=== PATIENT | female | born 1960 | race Caucasian/White ===

== ENCOUNTER 2018-11-30 11:37 | Inpatient (IN) ==
[2018-11-30] MEDS ORDERED: ZOSYN 3.375 GM in NS 50 ML IV SCH (13:00)
--- NOTE | 2018-11-30 13:19 | Diag Imaging Result Doc PS360 ---
EXAM: CHEST-2 VIEWS 11/30/2018 HISTORY: pancreatic cancer TECHNIQUE: PA and lateral chest COMMENT: There is ill-defined opacity extending from the vickey into both upper lobes which was not the case on 09/21/2018. There is platelike opacity over the right base and some retrocardiac opacity is present medially which was also not present at the time the previous study. IMPRESSION: Bronchopneumonia with basilar atelectasis. Electronically signed by Galdino Chan 11/30/2018 1:16 PM
[2018-11-30] MEDS ORDERED: ZOFRAN IV PRN (13:25)
--- NOTE | 2018-11-30 13:46 | HEMO/ONC CONSULTATION ---
DATE: 11/30/2018 HISTORY OF PRESENT ILLNESS: Ms. Rich presented to our clinic today where she continues to not feel well at this time. The patient says she has been extremely weak. Patient says she may have had a mild fever of 100.5 last week. The patient was also seen in our clinic last week complaining of extreme amount of weakness and at that time, she was found to have a hemoglobin and hematocrit of 6.3 and 18.3, as well as a platelet count of 14,000. The patient was sent to the hospital as an outpatient and received 2 units of packed red blood cells and 1 unit of platelets. The patient following day after receiving blood had a low-grade fever 100.5 and was started on Levaquin at that time. The patient says her weakness, appetite had not improved and continued to get worse. Today, patient continues to feel bad. While in the office she had a white blood cell count of 37.3 hemoglobin, hematocrit, and platelets all had improved since receiving transfusion. Patient denied any nausea or vomiting, but did have a very poor appetite. Ms. Rich is well known to us in our clinic where she follows up for her metastatic pancreatic adenocarcinoma. The patient originally presented to our clinic with obstructive jaundice. She underwent ERCP and stent placement. Biopsy revealed adenocarcinoma. Initial CA-19-[address] of the chest showed innumerable pulmonary metastasis. PET-CT showed a hypermetabolic pancreatic mass with innumerable pulmonary metastases. The patient was started on Abraxane and Gemzar chemotherapy on 09/07/2018. The patient received her last treatment of Gemzar and Abraxane on 11/16/2018. The patient has also been started on Procrit for chemotherapy- induced anemia. PAST MEDICAL HISTORY: Hypertension, hypothyroidism, metastatic pancreatic adenocarcinoma. PAST SURGICAL HISTORY: Tonsillectomy, tubal ligation with removal, ERCP with stent placement and Port-A-Cath placement. ALLERGIES: No known drug allergies. HOME MEDICATION: Ziac 5/6.25, [place] 5s, Levaquin, Synthroid, lorazepam, Reglan, Zofran, Phenergan, and Zanaflex. SOCIAL HISTORY: Nonsmoker. No alcohol or illicit drug use. FAMILY HISTORY: Heart disease, hypertension. REVIEW OF SYSTEMS: Negative other than as mentioned in history of present illness. PHYSICAL EXAMINATION: Vital Signs: Temperature 98 degrees, heart rate 86, respiratory rate 18, blood pressure 107/78, saturation 98% on room air. General: Patient is awake, lying in bed pale and ill appearing. HEENT: Anicteric. Mucous membranes appear very dry. Neck: Supple. Trachea midline. No JVD. Lymph Nodes: No palpable lymphadenopathy. Cardiovascular: S1, S2. Regular rate and rhythm. Chest: Bilateral breath sounds. Clear to auscultation. Abdomen: Soft, nontender. Bowel sounds present in all 4 quadrants. Neurologic: Alert and oriented x3. No focal deficits noted. Skin: Warm, dry and intact. LABORATORY DATA: White blood cell count drawn in the clinic: White blood cell count 37.3, hemoglobin 11.3, hematocrit 33.9, platelets are 158,000. Sodium 127, potassium 3.3, BUN 10, creatinine 0.28, calcium 7.3, alkaline phosphatase 300, AST 163, ALT is 53. ASSESSMENT/PLAN: 1. Metastatic pancreatic adenocarcinoma: The patient last received Gemzar Abraxane 11/16/2018. Treatment is on hold at this time until patient continues to get better. Once patient is back to baseline, we will consider if we can continue treatment at that time. However, at this time we will continue to monitor closely. 2. Leukocytosis: Blood cultures and antibiotics have been ordered. Infectious Disease has also been consulted. At this time, continue as per Primary Medical Team and Infectious Disease. 3. Anemia: Hemoglobin and hematocrit are 11.3 and 33.9. The patient is status post 2 units of packed red blood cells from last week. Hemoglobin and hematocrit have improved. Need to monitor for any signs of bleeding. 4. Thrombocytopenia: Lastly week's platelets were 14,000. Patient is status post 1 unit of platelets as well. Today they are 158,000. Continue to monitor closely. 5. Elevated Liver enzymes: Possible cholangitis. Continue to monitor levels closely. 6. Weakness: Patient will continue to get out of bed as much as possible. Patient will continue exercises while in the hospital. Continue protein shakes 3 times a day. May need to consult Physical Therapy. Continue to monitor closely. Dictated by HERNANDO Beaulieu for Azael Min MD Patient seen and examined. As above. Patient known to us for metastatic pancreatic adenocarcinoma. She has been on palliative chemotherapy with Gemzar and Abraxane with good response in terms of her tumor marker and restaging scans. She complains of recent fevers increasing tiredness and fatigue and was noted to be very weak with severe leukocytosis. She is admitted for evaluation and further management. Dr. Boswell has been consulted. Broad-spectrum antibiotics have been started. Cultures, urine culture and chest x-ray has been ordered. Azael Min M.D. cc: HERNANDO Beaulieu MD [facility]
[2018-11-30] MEDS: NS 1,000 ML IV SCH (15:31)
--- NOTE | 2018-11-30 15:44 | HISTORY AND PHYSICAL ---
PRIMARY CARE PHYSICIAN: Dr. Yumi Bustamante. ONCOLOGIST: Dr. Azael Min CHIEF COMPLAINT: Fever, leukocytosis, generalized weakness. HISTORY OF PRESENT ILLNESS: Mrs. Rich is a 58-year-old female with a history of metastatic pancreatic adenocarcinoma who is followed by Dr. Azael Min. She presents as a direct admit from his office complaining of extreme weakness with a mild fever of 100.5 during the last week. She was seen in his office last week when symptoms began and reportedly found to have a white count of 6.8, hemoglobin of 6.3, hematocrit of 18.3 as well as platelets of 14,000. She received 2 units of packed cells as well as 1 unit platelets. The following day she noticed a low-grade fever. Although her hemoglobin and hematocrit improved she states her weakness and anorexia have increased prompting her return visit to Dr. Min today. This visit. she was found to have a white blood cell count of 37.3. PAST MEDICAL HISTORY: Hypertension, hypothyroid, metastatic pancreatic adenocarcinoma. PAST SURGICAL HISTORY: Tonsillectomy, tubal ligation, ERCP with stent placement, Port-A-Cath placement. ALLERGIES: No known drug allergies. HOME MEDICATIONS: A list will be obtained by the nursing staff and once verified, will review and restart as appropriate. SOCIAL HISTORY: She denies alcohol, tobacco, or illicit drug use. REVIEW OF SYSTEMS: Discussed with patient with pertinent positives stated in HPI. She denied any syncope, dizziness, chest pain, palpitations, productive cough, any nausea, vomiting, diarrhea, constipation, black or bloody vomitus or stools, any hematuria, dysuria, frequency, urgency. PHYSICAL EXAM: A 58-year-old female who is lying in the bed in no distress. VITAL SIGNS: Blood pressure is 117/72, heart rate of 88, respirations are 18, temperature is 98 degrees, with room air saturations 96 to 98%. EYES: Pupils are equal, round, react to light. EOMs are intact. Sclerae anicteric. HEENT: Head is normocephalic, atraumatic. Mucous membranes moist. NECK: Supple, trachea midline. CARDIOVASCULAR: Regular rate and rhythm. S1, S2 appreciated. She has no murmur. She has no lower extremity edema. PULMONARY: Breath sounds are clear with no increased work of breathing noted. Chest rises and falls symmetric with respiration. GASTROINTESTINAL: Soft, nontender, nondistended with bowel sounds in all 4 quadrants. NEUROLOGIC: She is alert oriented x3. SKIN: Warm and dry. ASSESSMENT AND PLAN: 1. Leukocytosis. Blood cultures, urine culture as well as antibiotics have been ordered by Dr. Min. Dr. Stefano Boswell was consulted per Dr. Min. We continue with his care and further antibiotics will be culture driven. 2. Metastatic pancreatic adenocarcinoma. Aware. The patient will be followed by Dr. Min. 3. Anemia. We will trend complete blood count daily. 4. Thrombocytopenia. We will monitor labs daily. Monitor labs daily. 5. Elevated liver function tests. We will monitor her labs daily. 6. Dr. Carter reviewed the patient's chest x-ray and did not feel that this would warrant a white count of 37,000. Therefore, he ordered a CT of the abdomen and pelvis with IV and p.o. contrast. Complete blood count and complete metabolic panel now and then daily r For deep venous thrombosis prophylaxis will use Lovenox and gastrointestinal prophylaxis will use Prilosec. Further treatments pending hospital course. Dictated by HERNANDO Schaffer for Zeeshan Carter MD cc: HERNANDO Schaffer MD [facility]
[2018-11-30 16:14] LABS: AGAP 11; ALB/GLOB RATIO 0.7; ALBUMIN 2.1 g/dL (3.5-5.0); ALKALINE PHOSPHATASE 366 U/L (32-104); BUN 13 mg/dL (8-22); CALCIUM 7.5 mg/dL (8.8-10.2); CHLORIDE 94 mmol/L (98-107); COSMO 266; CREATININE 0.4 mg/dL (0.5-0.9); ESTIMATED GFR > 60; GLUCOSE 132 mg/dL (70-104); GOT 156 U/L (10-30); GPT 46 U/L (10-36); POTASSIUM 3.7 mmol/L (3.5-5.1); SODIUM 132 mmol/L (136-145); TCO2 27 mmol/L (25-35)
[2018-11-30 16:27] LABS: BASO# 0.15 X1000 (0.0-0.2); BASO% 0.4 % (0.0-0.8); HEMATOCRIT 31.6 % (37.0-47.0); HEMOGLOBIN 10.8 g/dL (12.0-16.0); IMM GRAN# 1.95 X1000 (0.0-0.04); IMM GRAN% 5.7 % (0.0-0.5); LYMPH# 1.91 X1000 (1.2-3.4); LYMPH% 5.6 % (20.5-51.1); MCH 33.2 PG (27-31); MCHC 34.2 g/dL (33-37); MCV 97.2 FL (81-99); MONO# 2.59 X1000 (0.11-0.59); MONO% 7.6 % (1.7-9.3); MPV 11.4 FL (7.4-10.4); NEUT# 27.66 X1000 (1.4-6.5); NEUT% 80.7 % (42.2-75.2); PLT 148 X1000 (130-400); RBC 3.25 XMIL (4.2-5.4); RDW 28.4 % (11.5-14.5); WBC 34.26 X1000 (4.8-10.8)
[2018-11-30 16:51] LABS: ANISOCYTOSIS 2+; LYMPHS 1 % (21-51); MONO 10 % (1-9); SEGS 89 % (42-75)
[2018-11-30] MEDS ORDERED: VANCOMYCIN IV PER PHARMACY MISC SCH (17:00)
--- NOTE | 2018-11-30 17:17 | INFECTIOUS DISEASE CONSULT REP ---
DATE: 11/30/2018 CONCLUSION: The patient has a bibasilar pneumonia which I think is responsible for her leukocytosis. She has received steroids in the past but the last time she had any steroids at all was 2 weeks ago and it was just a single dose. Therefore, I doubt that the steroids are playing a role in the patient's leukocytosis. She does have a Port-A-Cath and infection of Port-A-Cath with resulting bacteremia certainly is a possibility, but I think the pneumonia would be more likely to be causing the leukocytosis. RECOMMENDATIONS: I have discontinued Zosyn and placed the patient on vancomycin and cefepime. I have also requested that the patient send a sputum for Gram stain and culture. DISCUSSION: The patient tells me in the past 2 to 3 weeks, she has had a loss of energy, cough and occasionally she produces sputum. She has been admitted to the hospital. Her CBC shows a white count of 34,260, with a hemoglobin of 10.2, and a platelet count of a 148,000. Creatinine is 0.4. GFR is greater than 60. Blood cultures are pending. Chest x-ray shows bibasilar pneumonia. PAST MEDICAL HISTORY/REVIEW OF SYSTEMS: Eyes and ears: She does not have any problems seeing or hearing. Neck: No stiffness. Respiratory: See present illness. Cardiac: No chest pain or palpitations. GI: No nausea, vomiting, or diarrhea. : No dysuria or flank pain. Integument: No rash. Bones/joints/muscles: No swollen joints or muscle aches. Neurologic: No seizures. No loss of motor or sensory function recently. Extremities: The patient has bilateral leg edema but no erythema. [employer] HISTORY: She is a 3, para 3, AB 0. She has had a tubal ligation. PREVIOUS HOSPITALIZATIONS AND OPERATIONS: She has had 3 labor and deliveries, a tubal ligation, a tonsillectomy and extraction of teeth. The patient had a Port-A-Cath placed on the right side of the chest. MEDICAL DISEASES: The patient has pancreatic cancer for which she is on chemotherapy. She also has hypertension and hypothyroidism. INFECTIOUS DISEASE HISTORY: Positive for UTI. Negative for pneumonia. FAMILY HISTORY: Positive for diabetes mellitus, hypertension, myocardial infarction, stroke, and cancer. SOCIAL HISTORY: [place] She occasionally drinks wine, but she does not smoke cigarettes or abuse drugs. She is . She has dogs for pets. ALLERGIES: Her chart lists no known drug allergies. HOME MEDICATIONS: Include the following 1. Ziac. 2. Hydrocodone. 3. Levaquin. 4. Synthroid. 5. Lorazepam. 6. Reglan. 7. Zofran. 8. Phenergan. 9. Zanaflex. PHYSICAL EXAMINATION: Vital Signs: Temperature is 100.4 degrees, pulse 57, respirations are 18, blood pressure 117/72. General: This is an ill and malnourished-appearing, middle-aged female. She is in no acute distress. Head/eyes/ears/nose/throat: She can hear my spoken words and see near objects. She does not have any white coating on her tongue. Thorax: The patient has a Port- A-Cath present on the right side. The site is not swollen or erythematous. Lungs: Clear to auscultation. Cardiovascular: Heart rate is regular. Abdomen: Soft and nontender. Extremities: Patient has bilateral leg edema but no erythema. Neurologic: The patient is alert. She can move her extremities. There is no tremor. Her sensation is intact to touch. Her memory as regarding her medical history is good. Integument: No rash. Thank you for the consult. cc: Stefano Boswell MD [facility]
--- NOTE | 2018-11-30 17:49 | Diag Imaging Result Doc PS360 ---
EXAM: CT ABD/PELVIS W/PO AND IV CON 11/30/2018 HISTORY: weight loss, cachexia, dysphagia TECHNIQUE: This exam was performed using automated exposure control, adjustment of mA or kV according to patient size, and/or use of iterative reconstruction technique. COMMENT: There are patchy opacities in both lung bases with some small nodules and denser opacification present in the posterior costophrenic sulci of both lower lobes. Some of the nodules are larger and one in particular in the anterior left lower lobe has undergone cavitation since the previous examination of 08/13/2018. There are bilateral pleural effusions. There is profound hepatic steatosis with sparing in the periportal regions. There is pneumobilia. There is a Wallstent in the common hepatic and common bile ducts. The gallbladder is distended with some pneumobilia. There is a ring-enhancing lesion in the inferior right hepatic lobe. Compared to the previous examination of 08/13/2018 the hepatic lesion was not demonstrated previously. The Wallstent was not present at that time. There is dilatation of the pancreatic duct which actually is somewhat improved since the previous study. The mass in the head of the pancreas has decreased in size. There is dilatation of the splenic vein with collaterals and narrowing of the main portal vein presumably due to encasement in tumor or desmoplastic change. The superior mesenteric vein is narrowed. This was also the case at the time the previous study. There is increased density in the mesenteric fat and there are some prominent mesenteric nodes which are larger than they were on the previous examination. There is left periaortic retroperitoneal adenopathy which is also worse than on the previous exam. This is particularly notable below the level of the left renal vein. The spleen has increased in size from 9.5 to 11.5 cm in AP dimension. The adrenal glands are not enlarged. The kidneys are without evidence of hydronephrosis or mass. There is stool throughout the colon. The small bowel is not distended. There is some subcutaneous edema particularly over the gluteal regions bilaterally. Pelvis: The appendix is not enlarged. There is free fluid in the cul-de-sac. There is some endometrial thickening and/or fluid present in the uterus. This was not the case at the time the previous study. The regional skeleton is stable in appearance. IMPRESSION: 1. Bilateral pleural effusions, pulmonary metastatic lesions and patchy pneumonitis/pneumonia. The latter was not present at the time the previous study. 2. Worsened hepatic steatosis and new hepatic metastatic disease. 3. Worsened splenomegaly and portal hypertension. 4. Slightly worsened retroperitoneal adenopathy. 5. Slightly improved pancreatic mass. 6. Mild anasarca and ascites. Electronically signed by Galdino Chan 11/30/2018 5:47 PM
[2018-11-30] MEDS: MAXIPIME 1 GM in NS 50 ML IV SCH (18:58)
[2018-11-30] MEDS ORDERED: VANCOMYCIN 1,550 MG in NS 250 ML IV ONE (20:00)
--- NOTE | 2018-11-30 22:54 | HISTORY AND PHYSICAL ---
ADDENDUM: SUBJECTIVE: The patient came in with just weakness, not feeling well. She was a direct admit from Dr. Min. Febrile. Her white count has gone from normal white count to a white count of 37,000. She does not really have a lot of focal symptoms. She does admit to some cough, but it has not been a big change in cough. She does have a history of cancer for which she is getting treatment, which is metastatic pancreatic adenocarcinoma. Chest x-ray is consistent with pneumonia. Pulmonary exam: She does have some rales at the bases. In any case, she is going to be admitted and placed on antibiotics. She was initially placed on Zosyn, but she has now been changed to cefepime and vancomycin per Dr. Boswell's recommendations. She does not have postobstructive pneumonia so I think that is reasonable, and she does have a port so we need to make sure she does not have a bloodstream infection, but in any case, she seems to be doing better. This is a [id number] encounter note with Celia Salazar NP. cc: MD Azael Retana MD Dr. Gill
[2018-12-01] MEDS: MAXIPIME 1 GM in NS 50 ML IV SCH ×3 (01:56→16:16)
[2018-12-01 02:18] LABS: URINE SOURCE CLEAN CATCH
[2018-12-01 02:21] LABS: BILIRUBIN URINE NEGATIVE (NEGATIVE); BLOOD URINE NEGATIVE (NEGATIVE); COLOR YELLOW; GLUCOSE URINE NEGATIVE (NEGATIVE); KETONE URINE NEGATIVE (NEGATIVE); LEUKOCYTES URINE NEGATIVE (NEGATIVE); NITRITE URINE NEGATIVE (NEGATIVE); PROTEIN URINE 30 mg/dL (NEGATIVE); TURBIDITY URINE CLEAR (CLEAR); UROBILINOGEN URINE NORMAL (NORMAL)
[2018-12-01 02:23] LABS: UR EPITHELIAL CELLS <10 /HPF (<10); URINE BACTERIA NEGATIVE /HPF; URINE RBC <10 /HPF (<10); URINE WBC <10 /HPF (<10)
[2018-12-01 02:32] LABS: SP GRAVITY URINE 1.005
[2018-12-01] MEDS: NS 1,000 ML IV SCH ×3 (05:37→23:37)
[2018-12-01] MEDS: LOVENOX SUBQ SCH (06:40)
[2018-12-01 06:48] LABS: BASO# 0.05 X1000 (0.0-0.2); BASO% 0.3 % (0.0-0.8); HEMATOCRIT 28.7 % (37.0-47.0); HEMOGLOBIN 9.5 g/dL (12.0-16.0); IMM GRAN# 0.71 X1000 (0.0-0.04); IMM GRAN% 4.1 % (0.0-0.5); LYMPH% 6.9 % (20.5-51.1); MCH 32.6 PG (27-31); MCHC 33.1 g/dL (33-37); MCV 98.6 FL (81-99); MONO# 1.68 X1000 (0.11-0.59); MONO% 9.6 % (1.7-9.3); MPV 10.5 FL (7.4-10.4); NEUT# 13.78 X1000 (1.4-6.5); NEUT% 79.1 % (42.2-75.2); PLT 143 X1000 (130-400); RBC 2.91 XMIL (4.2-5.4); RDW 28.6 % (11.5-14.5); WBC 17.42 X1000 (4.8-10.8)
[2018-12-01 07:21] LABS: AGAP 9; ALB/GLOB RATIO 0.6; ALBUMIN 1.7 g/dL (3.5-5.0); ALKALINE PHOSPHATASE 256 U/L (32-104); BUN 10 mg/dL (8-22); CALCIUM 7.1 mg/dL (8.8-10.2); CHLORIDE 100 mmol/L (98-107); COSMO 270; CREATININE 0.3 mg/dL (0.5-0.9); ESTIMATED GFR > 60; GLUCOSE 87 mg/dL (70-104); GOT 127 U/L (10-30); GPT 40 U/L (10-36); POTASSIUM 3.5 mmol/L (3.5-5.1); SODIUM 136 mmol/L (136-145); TCO2 27 mmol/L (25-35); TOTAL BILIRUBIN 2.84 mg/dL (0.20-1.00); TOTAL PROTEIN 4.4 g/dL (6.3-8.3)
--- NOTE | 2018-12-01 08:49 | PROGRESS NOTE ---
DATE: 12/01/2018 SUBJECTIVE: The patient states that she is feeling better today. She feels that she has more strength. OBJECTIVE: Vital signs: Blood pressure is 95/61, heart rate of 91, respirations are 18, temperature 97.3 degrees with room air saturation of 87%. After being placed on 2 L O2, saturation did increase to 94%. Cardiovascular: Regular rate and rhythm. S1 and S2 appreciated. Extremities: She has no lower extremity edema. Calves nontender bilaterally with peripheral pulses palpable x4 extremities. Pulmonary: Lungs are diminished at the bases. Chest rises and falls symmetric with respiration. Chest wall is nontender to palpation. Gastrointestinal: Abdomen is soft, nontender, nondistended with bowel sounds in all 4 quadrants. LABORATORY DATA: WBC is 17.4 with a hemoglobin of 9.5, hematocrit 28.7, and platelets of 143,000. Sodium 136, potassium 3.5, BUN 10, creatinine 0.3, with a glucose of 87. ASSESSMENT AND PLAN: 1. Leukocytosis. This is improving. We will continue with her treatment and trend labs daily. 2. Bronchopneumonia with basilar atelectasis. We will continue with antibiotic coverage of cefepime and vancomycin, and incentive spirometer Acapella. 3. Metastatic pancreatic adenocarcinoma. Aware. Dr. Min is on board. 4. Anemia. We will continue to trend daily CBC. 5. Thrombocytopenia. Continue to monitor labs. 6. Elevated liver function tests. CT of the abdomen and pelvis was performed which revealed worsened hepatic steatosis as well as new hepatic metastatic disease. Further treatments pending hospital course. Dictated by HERNANDO Schaffer for Zeeshan Carter MD cc: HERNANDO Schaffer MD
[2018-12-01] MEDS: VANCOMYCIN 1,150 MG in NS 250 ML IV SCH ×2 (09:33→23:38)
--- NOTE | 2018-12-01 10:06 | HEMO/ONC PROGRESS NOTE ---
DATE: 12/01/2018 SUBJECTIVE: Patient says she continues to feel very weak. Patient says she did not feel well. The patient still has some shortness of breath. OBJECTIVE: Vital Signs: Temperature 97.3 degrees, heart rate 91, respiratory rate 18, blood pressure 95/61, saturating 90% on room air. General: Patient is awake, lying in bed. No acute distress noted. HEENT: Anicteric. Mucous membranes dry. Cardiovascular: S1, S2. Regular rate and rhythm. Chest: Bilateral breath sounds diminished bilaterally. Abdomen: Soft, nontender. Bowel sounds present in all 4 quadrants. Neurologic: Alert and orient x3. No focal deficits noted. LABORATORY DATA: White blood cell count 17.42, hemoglobin 9.5, hematocrit 28.7, platelets are 143,000. Potassium 3.5, BUN 15, creatinine 0.3, calcium 7.1. RADIOLOGY REPORTS: Chest x-ray shows bronchopneumonia with basilar atelectasis. Abdomen and pelvis CT shows bilateral pleural effusions, pulmonary metastatic lesions and patchy pneumonitis or pneumonia, worsened hepatic steatosis and new hepatic metastatic disease, worsened splenomegaly and slightly worsened retroperitoneal adenopathy, slightly improved pancreatic mass and mild anasarca and ascites. ASSESSMENT AND PLAN: 1. Metastatic pancreatic carcinoma: At this time waiting on patient to improve and get back to baseline. Once she is discharged and better, I will likely continue palliative chemotherapy at that time. For now, just continue to monitor closely. 2. Leukocytosis: This could be caused by the bronchopneumonia. Infectious disease has been consulted. Continue antibiotics as ordered. 3. Pneumonia: Continue antibiotics as ordered per primary medical team and Infectious Disease. Continue to monitor closely. 4. Anemia: Hemoglobin today is 9.5, hematocrit 28.7. No signs of bleeding. At this time just continue to monitor and transfuse as needed. 5. Weakness: Patient will continue to exercise as instructed while in the hospital. Continue Protein shakes 3 times a day. The patient continue getting out of bed as much as possible. Dictated by HERNANDO Beaulieu for Azael Min MD Patient seen and examined. Leukocytosis has significantly improved. Continue antibiotics. She is feeling minimally stronger. Her nutritional status has been a bit concerned over the last few months. She is considering a feeding tube. We will continue to discuss this. She has significant response in terms of her tumor marker which has dropped from 3776 on 09/03/18 to 194 last week. She is due for a PET scan some time soon. Azael Min M.D. [facility]
--- NOTE | 2018-12-01 14:50 | PROGRESS NOTE ---
DATE: 12/01/2018 SUBJECTIVE: Patient has no major complaints. She looks a little brighter today. OBJECTIVE: Blood pressure 92/65, heart rate of 99, respiratory rate of 18. Cardiovascular is doing okay. ASSESSMENT AND PLAN: 1. The patient is improving. We will continue antibiotics. I think we could probably trend down, but antibiotics are per Dr. Boswell. She is on vancomycin and cefepime, so we may discharge her on doxycycline and Omnicef or Cefprozil at his discretion, but I think she is doing better and hopefully home in the next 1 to 2 days. 2. Metastatic pancreatic cancer. She has further metastases in her liver. We will continue to follow. 3. She has pretty significant protein-calorie malnutrition. We will order some supplements and follow. DISPOSITION: Again, I think possibly home in the next 1 to 2 days. cc: Zeeshan Carter MD
--- NOTE | 2018-12-01 15:55 | INFECTIOUS DISEASE PROGRESS NO ---
DATE: 12/01/2018 PRESENT ILLNESS: Ms. Rich is being treated for bibasilar pneumonia and leukocytosis. Blood and urine cultures are pending. MEDICATIONS: She is receiving cefepime 1 g IV every 8 hours and vancomycin IV per pharmacy dosing. PHYSICAL EXAM: Vital Signs: Temperature is 97.4 degrees, pulse rate 99, respiratory rate 18, blood pressure 92/65, O2 saturation 100% on 2 L nasal cannula. General: This is a chronically ill-appearing middle-aged female. She is lying on her left lateral side in no acute distress. HEENT: Atraumatic, normocephalic. Oral mucous membranes are pink and moist. Conjunctivae are pink. Neck: Supple. Trachea is midline. Cardiovascular: Heart rate and rhythm are regular. Normal sinus rhythm on the monitor. Respiratory: Lung sounds are clear to auscultation bilaterally, diminished in the bases. Abdomen: Soft, round and nontender. Bowel sounds are active. Extremities: There is 2+ pretibial edema bilaterally. Integumentary: There is a Port-A- Cath in place to the right chest. The site is without edema, erythema or drainage. Neurologic: She is awake, alert, oriented, able to move around in the bed independently. LABORATORY AND X-RAY: Today her white count is 17.42, hemoglobin 9.5, platelet count 143,000. Creatinine is 0.3. Estimated GFR is greater than 60. Total bilirubin is 2.84, AST 127, ALT 40, alkaline phosphatase 256. A urinalysis done shows negative urine bacteria and less than 10 WBCs. There is a urine culture and blood cultures pending. No imaging reports today. ASSESSMENT AND PLAN: Ms Rich is receiving treatment for bibasilar pneumonia. Today her leukocytosis has improved. For now we will continue the vancomycin and cefepime as ordered pending outcome of the final cultures for urine and blood. These plans have been discussed with and recommended by Dr. Boswell. COMORBIDITIES: Include metastatic pancreatic cancer with chemotherapy and protein calorie malnutrition. Dictated by HERNANDO Haile for Stefano Boswell MD cc: Stefano Boswell MD [facility]
[2018-12-02] MEDS: MAXIPIME 1 GM in NS 50 ML IV SCH ×3 (03:00→16:19)
[2018-12-02] MEDS: TYLENOL PO PRN ×3 (06:57→22:13)
[2018-12-02] MEDS: LOVENOX SUBQ SCH (06:58)
[2018-12-02 07:29] LABS: BASO# 0.04 X1000 (0.0-0.2); BASO% 0.3 % (0.0-0.8); HEMATOCRIT 30.1 % (37.0-47.0); HEMOGLOBIN 9.9 g/dL (12.0-16.0); IMM GRAN# 0.43 X1000 (0.0-0.04); IMM GRAN% 2.9 % (0.0-0.5); LYMPH# 1.26 X1000 (1.2-3.4); LYMPH% 8.5 % (20.5-51.1); MCHC 32.9 g/dL (33-37); MCV 100.3 FL (81-99); MONO# 1.18 X1000 (0.11-0.59); MONO% 7.9 % (1.7-9.3); MPV 10.1 FL (7.4-10.4); NEUT% 80.4 % (42.2-75.2); PLT 173 X1000 (130-400); RDW 29.6 % (11.5-14.5); WBC 14.91 X1000 (4.8-10.8)
[2018-12-02 07:40] LABS: AGAP 9; BUN 9 mg/dL (8-22); CHLORIDE 105 mmol/L (98-107); COSMO 274; CREATININE 0.3 mg/dL (0.5-0.9); ESTIMATED GFR > 60; GLUCOSE 85 mg/dL (70-104); POTASSIUM 3.4 mmol/L (3.5-5.1); SODIUM 138 mmol/L (136-145); TCO2 24 mmol/L (25-35)
[2018-12-02 08:08] LABS: CALCIUM 6.9 mg/dL (8.8-10.2)
[2018-12-02] MEDS: VANCOMYCIN 1,150 MG in NS 250 ML IV SCH ×2 (08:56→22:10)
--- NOTE | 2018-12-02 11:02 | HEMO/ONC PROGRESS NOTE ---
DATE: 12/02/2018 SUBJECTIVE: Patient feels a little bit better at this time. The patient has no new complaints. Still feels slightly weak. OBJECTIVE: Vital Signs: Temperature 97.8 degrees, heart rate 93, respiratory rate 18, blood pressure 100/159, saturating 97% on room air. General: Patient is awake, lying in bed, no acute distress noted. HEENT: Anicteric, pupils PERRLA. Mucous membranes appear to be dry. Cardiovascular: S1, S2. Regular rate and rhythm. Chest: Bilateral breath sounds diminished bilaterally. Abdomen: Soft, nontender. Bowel sounds present all 4 quadrants. Neurologic: Alert and oriented x3. No focal deficits noted. LABORATORY DATA: White count 14.1, hemoglobin 9.9, hematocrit 30.1, platelets are 173,000. Potassium 3.4, BUN 9, creatinine 0.3. ASSESSMENT AND PLAN: 1. Metastatic pancreatic carcinoma: Once patient improves, we can hopefully continue to provide chemotherapy at that time. Continue to monitor for now. 2. Leukocytosis: Continues to improve. Continue antibiotics as ordered. 3. Pneumonia: Continue antibiotics as ordered by Infectious Disease. Continue to monitor closely. 4. Elevated liver enzymes: Bilirubin has increased. Patient had ERCP previously with stent placed. We will have Dr. Duval consulted for further evaluation and possible flushing of that stent. Continue to monitor closely. 5. Anemia: Hemoglobin and hematocrit continue to be stable. Hemoglobin 9.9, hematocrit 30.1. Continue to monitor closely. 6. Weakness: Continue to have patient exercise while in the hospital. Continue protein shakes 3 times a day. Continue to have patient get out of bed as much as possible. Dictated by HERNANDO Beaulieu for Azael Min MD Patient seen and examined. Elevated leukocytosis and LFTs likely due to cholangitis/stent obstruction, although, patient does not have classic symptoms. Patient also has some bronchopneumonia. Continue antibiotics. Patient slowly improving. Nutrition has been a problem. She would like to go ahead with PEG tube. Discussed with Dr. Antunez. He will schedule the same. Azael Min M.D. [facility]
[2018-12-02] MEDS ORDERED: CALCIUM GLUCONATE 1 GM in NS 50 ML IV ONE (12:12)
[2018-12-02] MEDS: NS 1,000 ML IV SCH ×2 (12:46→21:35)
--- NOTE | 2018-12-02 14:48 | INFECTIOUS DISEASE PROGRESS NO ---
DATE: 12/02/2018 PRESENT ILLNESS: Ms. Rich has bibasilar pneumonia and a leukocytosis, which is improving. MEDICATIONS: Today is day 2 of cefepime 1 g IV every 8 hours, and IV vancomycin per pharmacy dosing. PHYSICAL EXAMINATION: Vital Signs: Temperature is 97.3 degrees, pulse rate 97, respiratory rate 18, blood pressure 119/74, O2 saturation 99% on room air. General: This is a chronically ill- appearing, middle-aged female. She is lying in the bed currently in no acute distress. HEENT: Atraumatic, normocephalic. Oral mucous membranes are pink and moist. Conjunctivae are pink. Neck: Supple. Trachea is midline. Respiratory: Lung sounds are clear in the upper and middle lobes. Diminished in the bases. Cardiovascular: Heart rate and rhythm are regular. Normal sinus rhythm on the monitor. Abdomen: Soft, round and nontender. Bowel sounds are active. Patient is complaining of frequent bouts of diarrhea. Integumentary: There is a Port-A-Cath in place to the right chest without edema, erythema, or drainage to the site. Neurologic: She is awake, alert, and oriented. Able to move around in the bed independently. Extremities: She has 1+ to 2+ pretibial edema bilaterally. LABORATORY AND X-RAY: Today her white count is 14.91, hemoglobin 9.9, platelet count 173,000. Creatinine is 0.3. Estimated GFR greater than 60. The preliminary report on her urine culture has shown no growth. Blood cultures have shown no growth after 48 hours. C. difficile toxin is pending. No imaging reports today. ASSESSMENT AND PLAN: Ms. Rich is being treated for bibasilar pneumonia. The leukocytosis is improving. For now, we will continue her cefepime and vancomycin as ordered. She is complaining of some diarrhea, so Clostridium difficile toxin is pending. If it is positive, we will add oral vancomycin. These plans have been discussed with and recommended by Dr. Boswell. COMORBIDITIES: Comorbidities for Ms. Rich include metastatic pancreatic cancer and protein calorie malnutrition. Dictated by HERNANDO Haile for Stefano Boswell MD cc: Stefano Boswell MD [facility]
--- NOTE | 2018-12-02 15:02 | PROGRESS NOTE ---
DATE: 12/02/2018 INTERVAL HISTORY: The patient dyspnea much improved. Still some dry cough. Still requiring some oxygen. No new complaints. No acute events overnight. REVIEW OF SYSTEMS: Twelve point review of systems negative, except as per interval history. LABS: White blood count 14.9, hemoglobin 9.9, hematocrit 30.1, platelets 173. Sodium 138, potassium 3.4, bicarbonate 24. Creatinine 0.3, calcium 6.9, ionized calcium 1.1. VITALS: T-max 98.2, pulse 97, respirations 18, blood pressure 119/74, O2 saturation 93% on 2 L. PHYSICAL EXAMINATION: General: No acute distress. Chronically ill-appearing. Vital Signs: Vitals as above. HEENT: Normocephalic, atraumatic. Moist mucous membranes. Neck: No cervical adenopathy. Cardiovascular: Regular rate and rhythm. No rubs or gallops. Pulmonary: Slightly decreased breath sounds throughout, otherwise largely clear to auscultation. Abdomen: Soft, nontender, nondistended. Bowel sounds positive. Extremities: Peripheral pulses are decreased, but present. No clubbing or cyanosis. Neurologic: Cranial nerves grossly intact globally. Weak, but no focal deficits. Psychiatric: Normal mood and affect. Skin: No new rashes or lesions identified. ASSESSMENT AND PLAN: 1. Metastatic pancreatic carcinoma. Oncology following. Chemotherapy on hold. Continue to monitor. 2. Pneumonia and leukocytosis. Infectious Disease following. Patient currently on vancomycin and cefepime. Leukocytosis improving rapidly. Hopefully, will be able to transition over to oral antibiotics soon. 3. Elevated liver function tests likely related to underlying malignancy. 4. Likely anemia of chronic disease. Blood count stable. Monitor. 5. Malnutrition. Slightly improved oral intake over the last couple of days. Continue to monitor.
[2018-12-02] MEDS ORDERED: PROTONIX PO ONE (18:16)
[2018-12-02] MEDS: IMODIUM PO PRN ×2 (18:36→21:36)
--- NOTE | 2018-12-02 20:24 | GASTROENTEROLOGY CONSULTATION ---
DATE: 12/02/2018 Reason for consultation: cholangitis, abnormal LFTs, history of pancreatic cancer HPI: Ms. Damairs Rich is a 58 year old woman with PMH of metastatic pancreatic cancer with innumerable pulmonary metastasis, diagnosed in 08/2018 s/p ERCP with biliary metal stent placement on Gemzar and Abraxane (last dose 11/16/2018), who presented as a direct admission from Dr. Min for fever and leukocytosis (WBC 37). She reports fatigue and poor appetite. She has lost 30lb in the last 3-4 months. He had upper abdominal discomfort that is unchanged from prior. No N/V, chills, sweats, change in bowel habits, CP, SOB, melena, rectal bleeding. No blood thinners or NSAIDs. Of note, she was transfused 2 units pRBCs and 1 unit of platelets last week for anemia and thrombocytopenia. ROS: as per HPI; otherwise, 12 point ROS negative PAST MEDICAL HISTORY: Hypertension, hypothyroidism, metastatic pancreatic adenocarcinoma. PAST SURGICAL HISTORY: Tonsillectomy, tubal ligation with removal, ERCP with stent placement and Port-A-Cath placement. ALLERGIES: No known drug allergies. HOME MEDICATION: Ziac 5/6.25, Kendrick 5s, Levaquin, Synthroid, lorazepam, Reglan, Zofran, Phenergan, and Zanaflex. SOCIAL HISTORY: Nonsmoker. No alcohol or illicit drug use. FAMILY HISTORY: Heart disease, hypertension. No GI diseases PHYSICAL EXAMINATION: VS: 97.8 HR 92 RR 18 BP 96/50 89% RA GEN: awake, alert, AND HEENT: mild scleral icterus, MMM, no oral ulcers NECK: supple, no JVD PULM: CTAB no wheezing CV: RRR, no murmurs ABD: soft NT/ND, NABS, no rebound or guarding EXT: no cce NEURO: nonfocal LABS: K 3.4 Cr 0.3 WBC 14.9<--<--37 Hgb 9.9 Plts 173K Tbili 2.8 from 4.1 AST 127 ALT 40 ALP 256 Albumin 1.7 CTAP W/ W/O contrast 11/30 IMPRESSION: 1. Bilateral pleural effusions, pulmonary metastatic lesions and patchy pneumonitis/pneumonia. The latter was not present at the time the previous study. 2. Worsened hepatic steatosis and new hepatic metastatic disease. 3. Worsened splenomegaly and portal hypertension. 4. Slightly worsened retroperitoneal adenopathy. 5. Slightly improved pancreatic mass. 6. Mild anasarca and ascites. Ms. Damaris Rich is a 58 year old woman with PMH of metastatic pancreatic cancer with innumerable pulmonary metastasis, diagnosed in 08/2018 s/p ERCP with biliary metal stent placement on Gemzar and Abraxane (last dose 11/16/2018), who presents with fever and leukocytosis in the setting for cholestatic LFTs concerning for ascending cholangitis. She is nontoxic appearing with minimal icterus on exam. Abdomen benign. LFTs slightly improved since admission. On abx per ID. CT shows question new hepatic met, fatty liver, worsened RP LAD, and pulmonary mets with patchy pneumonitis/pneumonia #Cholangitis: on vancomycin and cefepime as per ID - trending LFTs - plan for ERCP on Friday with Dr. Duval - NPO at [place] on #Leukocytosis: improving #Abnormal LFTs: improving #Pancreatic cancer: metastatic, significant improvement of CA19-9 recently; Dr. Min following #Anemia: chemo-induced; trending H/H; transfuse prn for goal hgb 7-8 #Question pneumonia vs pneumonitis: on abx as per ID #Severe protein calorie malnutrition: 2/2 to poor intake; oncology following; recommending PEG placement Thank you for this consult. Will follow with you. Please call with questions. MTDD
[2018-12-02] MEDS: MELATONIN PO SCH (21:35)
[2018-12-03] MEDS: MAXIPIME 1 GM in NS 50 ML IV SCH ×3 (01:47→17:51)
[2018-12-03] MEDS: LOVENOX SUBQ SCH (06:14)
[2018-12-03] MEDS: PROTONIX PO SCH (06:14)
[2018-12-03 07:46] LABS: BASO# 0.05 X1000 (0.0-0.2); BASO% 0.4 % (0.0-0.8); HEMATOCRIT 31.1 % (37.0-47.0); HEMOGLOBIN 10.2 g/dL (12.0-16.0); IMM GRAN# 0.16 X1000 (0.0-0.04); IMM GRAN% 1.4 % (0.0-0.5); LYMPH# 1.12 X1000 (1.2-3.4); LYMPH% 9.7 % (20.5-51.1); MCH 33.1 PG (27-31); MCHC 32.8 g/dL (33-37); MONO% 8.6 % (1.7-9.3); MPV 9.5 FL (7.4-10.4); NEUT# 9.24 X1000 (1.4-6.5); NEUT% 79.9 % (42.2-75.2); PLT 162 X1000 (130-400); RBC 3.08 XMIL (4.2-5.4); RDW 30.5 % (11.5-14.5); WBC 11.57 X1000 (4.8-10.8)
[2018-12-03] MEDS: NS 1,000 ML IV SCH ×5 (11:10→22:29)
[2018-12-03] MEDS: VANCOMYCIN 1,000 MG in NS 250 ML IV SCH ×2 (11:25→22:15)
[2018-12-03] MEDS: TYLENOL PO PRN ×2 (11:50→11:52)
[2018-12-03] MEDS: IMODIUM PO PRN ×2 (11:53→22:18)
--- NOTE | 2018-12-03 13:30 | GASTROENTEROLOGY PROGRESS NOTE ---
DATE: 12/03/2018 SUBJECTIVE: Patient is resting in bed; c/o ]abdominal pain. She denies any fevers, rigors, or chills. She has decreased p.o. intake. She moved her bowels today, which were brown and liquid. OBJECTIVE: Vital signs: Temperature 97.9 degrees, pulse of 78, respiratory rate of 14, blood pressure 93/50, saturating 98% room air. Weight: Body weight 117 pounds 2 ounces. BMI 19.5. General: Patient is thinly built, lying in bed, in no acute distress. HEENT: Pale conjunctivae. Mild icterus. Neck is supple. Abdomen: Discomfort in the epigastrium. No rebound. No guarding. Extremities: No cyanosis or clubbing. Neurologic: She is alert, awake, oriented x3. DIAGNOSTIC STUDIES: Hemoglobin is 10.2, hematocrit 31.1, white count of 11.57, platelet count of 162,000. Sodium 138, potassium 3.4, chloride 105, bicarbonate 24, anion gap 9, BUN of 9, creatinine 0.3, glucose of 85, calcium 6.9. Blood culture x2 negative for 48 hours. C difficile toxin was negative. IMPRESSION AND PLAN: 1. Cholangitis. She is on antibiotics with vancomycin and cefepime per Infectious Disease. We will need to follow the liver enzymes. We will schedule her for ERCP tomorrow with Dr. Duval. The patient will be made n.p.o. past midnight. 2. Metastatic pancreatic cancer with innumerable pulmonary metastases diagnosed in August 2018, status post endoscopic retrograde cholangiopancreatography with biliary metal stent placement. She has been on Gemzar and Abraxane. Last dose was 11/16/[address] Min is following. 3. Elevated liver enzymes with jaundice, likely secondary to cholangitis and may be obstruction of the metal stent. ERCP to be done tomorrow by Dr. Duval. 4. Anemia. Continue to watch for now. 5. Pneumonia, possible. She is on antibiotics per primary care team. 6. Protein-calorie malnutrition. She is on Ensure with breakfast daily. She has a regular diet. 7. Diarrhea. Her stool studies are negative for C difficile. She is on loperamide. 8. Deep vein thrombosis prophylaxis with Lovenox. 9. Gastrointestinal prophylaxis with Protonix. The above plan of care was discussed with the patient, and all of her questions were answered. Please call us with any further questions. cc: MD Azael Murguia MD MTDD
--- NOTE | 2018-12-03 13:38 | HEMO/ONC PROGRESS NOTE ---
DATE: 12/03/2018 SUBJECTIVE: Patient complaining of some increased amounts of diarrhea. No other complaints at this time. Patient slightly overall feels better. OBJECTIVE: Vital Signs: Temperature 97.9 degrees, heart rate 70, respiratory rate 14, blood pressure 93/50, saturating 98% on room air. General: Patient is awake, lying in bed, no acute distress noted. HEENT: Anicteric. Mucous membranes dry. Cardiovascular: S1, S2. Regular rate and rhythm. Chest: Bilateral breath sounds diminished bilaterally. Abdomen: Soft, nontender. Bowel sounds present in all 4 quadrants. Neurologic: Alert and oriented x3. No focal deficits noted. LABORATORY DATA: White blood cell count 11.57, hemoglobin 10.2, hematocrit of 31.1, platelets are 162,000. ASSESSMENT AND PLAN: 1. Metastatic pancreatic carcinoma: Once patient improves hopefully continue her palliative chemotherapy at that time. Continue to monitor. 2. Leukocytosis continues to improve. Continue antibiotics as ordered. 3. Pneumonia: Continue antibiotics as ordered by Infectious Disease. Continue to watch closely. 4. Elevated liver enzymes: Most likely cholangitis or stent obstruction. GI has been consulted. Plan is for hopefully the patient will be n.p.o. after midnight Plan is for another ERCP for evaluation of stent. 5. Anemia: Hemoglobin and hematocrit continue to be stable. Continue to monitor. 6. Weakness: Continue to have patient get up and exercise while in the hospital. Continue protein shakes 3 times a day. Continue to have patient get out of bed as much as possible. 7. DVT prophylaxis: Continue lovenox. Dictated by HERNANDO Beaulieu for Azael Min MD Patient seen and examined. As above. Complains of upper abdominal pain. Encouraged to take pain medicine as soon as her pain gets to a level 4-5. Plans for ERCP tomorrow. Continue antibiotics. Leukocytosis is trending down. Her nutritional status continues to decline. Patient agreeable for PEG tube placement. Discussed with Dr. Antunez. Azael Min M.D. [facility]
[2018-12-03] MEDS: NORCO-5 PO PRN ×3 (13:40→22:09)
--- NOTE | 2018-12-03 14:56 | EKG Report ---
Test Performed on : 12/03/2018 2:49:31 PM Test Reason : Intermittent tachcycardia Blood Pressure : / mmHG Vent. Rate : 090 BPM Atrial Rate : 090 BPM P-R Int : 142 ms QRS Dur : 072 ms QT Int : 372 ms P-R-T Axes : 032 046 -17 degrees QTc Int : 455 ms Normal sinus rhythm. Low voltage QRS Cannot rule out Anterior infarct , age undetermined Abnormal ECG No previous ECGs available Confirmed by Jose ZAZUETA, Ramírez Romeo ([id number]) on 12/06/2018 4:37:51 PM
--- NOTE | 2018-12-03 15:39 | PROGRESS NOTE ---
DATE: 12/03/2018 INTERVAL HISTORY: No acute event overnight. The patient continues to feel very weak. She continues to have liquid brown bowel movements at least 2 of them reported yesterday. She continues to have poor p.o. appetite. The patient's family is at bedside. I discussed with them about exam findings, CAT scan findings, plan, and answered all of their questions. VITAL SIGNS: Detect temperature of 97.6 degrees, pulse 85, respiratory 24, blood pressure 120/80 and saturating 100% on room air.General: Ill appearing not in any acute distress though she has loss of her hair. Oral cavity is moist. Lungs: Air entry bilaterally equal. No wheeze, rhonchi, or crackles. Cardiovascular: S1, S2 normal. No murmur, rub, or gallop. Abdomen: Soft. Appears full. Nontender. Extremities: She has mild bilateral lower extremity edema extending up to knee level. LABORATORY: Labs are suggestive of persistent leukocytosis which is improving. Normocytic to macrocytic anemia. Normal platelet count. BMP is pending, and I will repeat it tomorrow. ASSESSMENT AND PLAN: 1. Sepsis due to bilateral lower lobe pneumonia and suspected acute cholangitis. Blood culture has not shown any growth. Continue intravenous vancomycin and intravenous cefepime as per ID recommendation. She is not in any respiratory distress. The patient likely to undergo ERCP tomorrow for evaluation of stent obstruction considering her obstructive jaundice. 2. History of metastatic pancreatic adenocarcinoma diagnosed in August of 2018 with lung metastasis and now suspected liver metastasis on Abraxane and Gemzar with the last dose being on 11/16. The patient would likely undergo ERCP tomorrow with evaluation of stent function considering her obstructive jaundice. She concomitantly get a PEG tube for her poor nutritional status. Oncology on board. Continue pain management with [place], and continue loperamide with [place] for her persistent diarrhea. C. Difficile toxin has been negative. 3. Others: Continue enoxaparin for deep venous thrombosis prophylaxis and pantoprazole for GERD. 4. Disposition. Patient remains inside the hospital for need for ERCP. Plan of care discussed with the patient, and her family at bedside. All of their questions have been answered satisfactorily. cc: Aryan Oquendo MD
--- NOTE | 2018-12-03 15:52 | INFECTIOUS DISEASE PROGRESS NO ---
DATE: 12/03/2018 PRESENT ILLNESS: The patient has a bibasilar pneumonia and a leukocytosis which is improving. The leukocytosis could be secondary to a cholangitis with partial common bile duct obstruction due to the patient's cancer. MEDICATION: Vancomycin and cefepime. PHYSICAL EXAMINATION: Vital Signs: Temperature is 97.6 degrees, pulse 85, respirations 24, blood pressure 123/80. General: This is a chronically ill-appearing, middle-aged female. She appears to be in no acute distress. Head, eyes, ears, nose, and throat: She can hear my spoken words and see near objects. She does not have any white patches on her tongue. Neck: She does not have any pain when she turns her head. Thorax: The patient has a Port-A-Cath in place on the right side. The site is not erythematous or swollen. Lungs: Clear to auscultation. Cardiovascular: Regular heart rate. Abdomen: Soft and nontender. Neurologic: Patient is alert. She can move her extremities. There is no tremor. Extremities: The patient has bilateral leg edema, but no erythema. LAB AND X-RAY STUDIES: Clostridium difficile toxin and antigen are negative. CBC shows a white count of 11,570, hemoglobin 10.2, and platelet count 162,000. ASSESSMENT AND PLAN: The patient is being treated for a bibasilar pneumonia. She also may have cholangitis. The plan is to continue her current antibiotics and tomorrow endoscopy is going to be performed in order to improve common bile duct drainage. COMORBIDITIES: The patient's comorbidities include metastatic pancreatic cancer and malnutrition. Thank you for the consult. cc: MD DANIEL Moreira
[2018-12-03] MEDS: MELATONIN PO SCH (22:17)
[2018-12-03] MEDS: TUMS PO SCH (22:17)
[2018-12-03] MEDS: CULTURELLE PO SCH (22:18)
[2018-12-04] MEDS: MAXIPIME 1 GM in NS 50 ML IV SCH ×3 (01:32→23:06)
[2018-12-04] MEDS: LOVENOX SUBQ SCH (06:18)
[2018-12-04] MEDS: PROTONIX PO SCH (06:18)
[2018-12-04 07:07] LABS: BASO# 0.06 X1000 (0.0-0.2); BASO% 0.5 % (0.0-0.8); HEMATOCRIT 32.7 % (37.0-47.0); HEMOGLOBIN 10.8 g/dL (12.0-16.0); IMM GRAN% 0.9 % (0.0-0.5); LYMPH# 1.36 X1000 (1.2-3.4); LYMPH% 12.1 % (20.5-51.1); MCH 33.2 PG (27-31); MCV 100.6 FL (81-99); MONO# 1.12 X1000 (0.11-0.59); MONO% 9.9 % (1.7-9.3); MPV 9.5 FL (7.4-10.4); NEUT# 8.64 X1000 (1.4-6.5); NEUT% 76.6 % (42.2-75.2); PLT 163 X1000 (130-400); RBC 3.25 XMIL (4.2-5.4); RDW 29.9 % (11.5-14.5); WBC 11.28 X1000 (4.8-10.8)
[2018-12-04 07:28] LABS: ESTIMATED GFR > 60
[2018-12-04 07:29] LABS: AGAP 9; ALB/GLOB RATIO 0.6; ALBUMIN 1.6 g/dL (3.5-5.0); ALKALINE PHOSPHATASE 222 U/L (32-104); BUN 10 mg/dL (8-22); CALCIUM 7.3 mg/dL (8.8-10.2); CHLORIDE 110 mmol/L (98-107); COSMO 276; CREATININE 0.4 mg/dL (0.5-0.9); GLUCOSE 96 mg/dL (70-104); GOT 103 U/L (10-30); GPT 41 U/L (10-36); MAGNESIUM 1.8 mg/dL (1.5-2.7); POTASSIUM 3.3 mmol/L (3.5-5.1); SODIUM 139 mmol/L (136-145); TCO2 20 mmol/L (25-35); TOTAL BILIRUBIN 2.57 mg/dL (0.20-1.00); TOTAL PROTEIN 4.4 g/dL (6.3-8.3)
--- NOTE | 2018-12-04 10:43 | Diag Imaging Result Doc PS360 ---
EXAM: CHEST-1 VIEW 12/04/2018 HISTORY: pneumonia TECHNIQUE: AP portable at 1027 COMMENT: There are bilateral pleural effusions. The inspiration is much less optimal than on 11/30/2018. There is apparent subsegmental atelectasis in both lung bases and ill-defined parahilar opacity bilaterally which was present at the time the previous study. IMPRESSION: Bronchopneumonia with increasing pleural effusions. Electronically signed by Galdino Chan 12/04/2018 10:40 AM
[2018-12-04] MEDS ORDERED: XYLOCAINE-MPF 2% ONE (11:35)
[2018-12-04] MEDS ORDERED: DIPRIVAN 1% ONE ×2 (11:36)
[2018-12-04] MEDS ORDERED: ROBINUL ONE (11:41)
[2018-12-04] MEDS ORDERED: ZOFRAN ONE (11:45)
[2018-12-04] MEDS ORDERED: VERSED ONE (11:59)
--- NOTE | 2018-12-04 12:16 | PROGRESS NOTE ---
DATE: 12/04/2018 INTERVAL HISTORY: No acute overnight events. The patient is feeling fine. Her p.o. intake continues to remain on the lower side. She denies any new complaints. She denies nausea, vomiting, abdominal pain. Her diarrhea has significantly improved. VITALS: Current temperature 97.5 degrees, pulse 96, respiratory rate of 14, blood pressure 109/66, saturating 96% on 2 L nasal cannula. PHYSICAL EXAMINATION: General: Cachectic, not in any acute distress. HEENT: She has loss of her scalp hair. Oral cavity is moist. Lungs: Air entry bilaterally equal. No wheeze, rhonchi, crackles. Cardiovascular: S1, S2 normal. No murmur, rub, or gallop. She has a right-sided chest port. Abdomen: Soft, full, not significantly tender. Active bowel sounds. Extremities: She has mild bilateral lower extremity edema extending up to mid knee level. Input and output: Not significant. LABS: Suggestive of improving leukocytosis, macrocytic anemia likely because of liver metastasis, normal platelet count, hypokalemia, normal kidney function. Hypokalemia is being repleted right now. She does have persistently elevated total bilirubin and transaminitis. C difficile toxin analysis was negative. ASSESSMENT AND PLAN: 1. Sepsis due to bilateral lower lobe pneumonia and suspected acute cholangitis with negative culture data. Continue intravenous vancomycin and cefepime as per Infectious Disease recommendation. Infectious Disease is planning intravenous antibiotic course at the time of discharge through port. The patient is likely to undergo endoscopic retrograde cholangiopancreatography today to evaluate for common bile duct stent that was placed in the past considering her obstructive jaundice and abnormal liver function tests. 2. History of metastatic pancreatic adenocarcinoma diagnosed in August 2018 with lung metastases bilaterally, as well as suspected new liver metastasis on Abraxane and Gemzar with last dose being on November 16. Follow up post endoscopic retrograde cholangiopancreatography recommendation: There are also potential plans of percutaneous endoscopic gastrostomy tube placement. However, I am unsure about the timing of this at the moment. Continue pain management with [place] and continue lactobacillus with loperamide for diarrhea which is improving. 3. Continue enoxaparin for deep vein thrombosis prophylaxis and pantoprazole for gastroesophageal reflux disease. DISPOSITION: I am awaiting patient post ERCP. If her post ERCP course is uncomplicated, I am anticipating discharge on IV antibiotics to port in next 24-48 hours if liver function trends down. Plan of care discussed with the patient and multiple family members at bedside. All of their questions have been answered. cc: MD DANIEL Finney
[2018-12-04] MEDS ORDERED: NEO-SYNEPHRINE ONE (12:30)
[2018-12-04] MEDS ORDERED: SODIUM CHLORIDE 0.9% 10 ML ONE (12:30)
[2018-12-04] MEDS: NS 1,000 ML IV SCH (14:03)
[2018-12-04] MEDS: CULTURELLE PO SCH ×2 (14:05→21:36)
[2018-12-04] MEDS: TUMS PO SCH ×2 (14:06→21:36)
[2018-12-04] MEDS: NORCO-5 PO PRN ×3 (14:18→23:06)
--- NOTE | 2018-12-04 14:30 | HEMO/ONC PROGRESS NOTE ---
DATE: 12/04/2018 SUBJECTIVE: The patient continues to feel extremely weak. The patient continues to have some abdominal pain. No new complaints at this time. OBJECTIVE: Vital Signs: Temperature 97.5 degrees, heart rate 96, respiratory rate 18, blood pressure 109/66, saturation 96% on nasal cannula. General: The patient is awake, lying in bed, no acute distress noted. HEENT: Anicteric. Mucous membranes dry. Cardiovascular: S1, S2. Regular rate and rhythm. Chest: Breath sounds diminished bilaterally. Abdomen: Soft, nontender. Bowel sounds present all 4 quadrants. Neurologic: Alert and oriented x3. No focal deficits noted. LABORATORY DATA: White count 11.28, hemoglobin 10.8, hematocrit 32.7, platelets are 163,000, potassium 3.3, BUN 10, creatinine 0.4, AST 103, ALT 41, alkaline phosphatase 222. ASSESSMENT AND PLAN: 1. Metastatic pancreatic carcinoma: Treatment on hold until the patient improves. Continue to monitor. For PET scan outpatient when possible to evaluate disease further. 2. Leukocytosis continues to improve: Continue antibiotics as ordered. 3. Pneumonia: Continue antibiotics per Infectious Disease. 4. Elevated liver enzymes and cholangitis: ERCP later today with Gastroenterology. Continue per their recommendations. 5. Anemia: Continues to be stable. Continue to monitor. 6. Weakness: Continue exercises as instructed. Continue to get out of bed as much as possible. 7. Deep venous thrombosis prophylaxis. Continue Lovenox as ordered. Dictated by HERNANDO Beaulieu for Azael Min MD [facility]
[2018-12-04] MEDS ORDERED: CHLORASEPTIC SORE THROAT LOZENGE MT PRN (14:47)
[2018-12-04] MEDS: VANCOMYCIN 1,000 MG in NS 250 ML IV SCH ×2 (14:58→21:38)
[2018-12-04] MEDS: POTASSIUM CHLORIDE 20 MEQ/SWI 20 MEQ/100 ML IVPB IV SCH ×2 (16:55→19:04)
--- NOTE | 2018-12-04 17:16 | INFECTIOUS DISEASE PROGRESS NO ---
DATE: 12/04/2018 PRESENT ILLNESS: The patient has a bibasilar pneumonia and cholangitis. The patient's leukocytosis is improving. MEDICATIONS: The patient is on a combination of cefepime and vancomycin. PHYSICAL EXAMINATION: Vital Signs: Temperature is 97.5 degrees, pulse respirations 14, blood pressure 109/66. General: This is a chronically ill-appearing middle-aged female. She is in no acute distress. Head, Eyes, Ears, Nose and Throat: She can hear my spoken words and see near objects. She does not have any white patches on her tongue. Lungs: Clear to auscultation. Cardiovascular: Regular heart rate. Thorax: The patient has a Port-A-Cath present on the right side. The site is not erythematous or purulent. Abdomen: Soft and not tender. Extremities: Patient has bilateral leg edema, but no erythema. LAB AND X-RAY: There is no new radiographic study. CBC today showed a white count of 11,280, hemoglobin 10.8 and platelet count 163,000. The patient's creatinine is 0.4. GFR is greater than 60. The patient's Clostridium difficile toxin, blood cultures, urine culture are negative thus far. ASSESSMENT AND PLAN: Our plan is to send the patient home on IV antibiotics for approximately 10 more days. Then, I am requesting that the patient be seen at my office in about 10 days for followup. At that time, the patient will be examined and also we will repeat the chest x-ray to hopefully see that the pneumonia has cleared up. COMORBIDITIES: She has metastatic pancreatic cancer and she is malnourished. cc: Stefano Boswell MD
--- NOTE | 2018-12-04 18:40 | OPERATIVE NOTE ---
PROCEDURE DATE: 12/04/2018 PROCEDURE: 1. Endoscopic retrograde cholangiopancreatography. 2. Esophagogastroduodenoscopy. PREOPERATIVE DIAGNOSIS: Stent occlusion. 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 DESCRIPTION OF PROCEDURE: After informed consent and adequate intravenous sedation, the scope introduced through the esophagus, stomach, and duodenum. I could not enter the postbulbar area, which is very narrowed down with the ERCP scope; however, there is no significant gastric outlet obstruction in terms of any retained food. Multiple attempts were unsuccessful. At this point, an EGD scope was introduced. Again, it has encountered similar problem, could not pass postbulbar area. There is obvious tumor into the duodenum. The scope was withdrawn. The patient tolerated the procedure well without any immediate complications. Patient's cholangitis seems to be improved with antibiotics. Continue current management. We will discuss with Dr. Min. There is obviously increase in tumor growth other than the pancreatic tumor itself since the last CT. cc: MD Azael Capoen MD
[2018-12-04] MEDS: MELATONIN PO SCH (21:36)
[2018-12-04] MEDS: CLINIMIX E 4.25%-5% SOLUTION 1,000 ML IV SCH (23:58)
[2018-12-05] MEDS: LOVENOX SUBQ SCH (05:23)
[2018-12-05] MEDS: NORCO-5 PO PRN ×3 (05:27→20:38)
[2018-12-05] MEDS: PROTONIX PO SCH (06:25)
[2018-12-05 07:41] LABS: AGAP 9; ALB/GLOB RATIO 0.6; ALBUMIN 1.6 g/dL (3.5-5.0); ALKALINE PHOSPHATASE 227 U/L (32-104); BUN 9 mg/dL (8-22); CALCIUM 7.2 mg/dL (8.8-10.2); CHLORIDE 108 mmol/L (98-107); COSMO 277; CREATININE 0.5 mg/dL (0.5-0.9); ESTIMATED GFR > 60; GLUCOSE 144 mg/dL (70-104); GOT 90 U/L (10-30); GPT 39 U/L (10-36); POTASSIUM 3.8 mmol/L (3.5-5.1); SODIUM 138 mmol/L (136-145); TCO2 21 mmol/L (25-35); TOTAL BILIRUBIN 2.33 mg/dL (0.20-1.00); TOTAL PROTEIN 4.4 g/dL (6.3-8.3)
[2018-12-05] MEDS: MAXIPIME 1 GM in NS 50 ML IV SCH ×2 (11:14→23:28)
[2018-12-05] MEDS: TUMS PO SCH ×2 (11:16→20:38)
[2018-12-05] MEDS: CULTURELLE PO SCH ×2 (11:16→20:38)
[2018-12-05] MEDS: VANCOMYCIN 1,000 MG in NS 250 ML IV SCH ×2 (12:19→22:06)
--- NOTE | 2018-12-05 13:03 | PROGRESS NOTE ---
DATE: 12/05/2018 INTERVAL HISTORY: Ms. saldivar underwent EGD for ERCP yesterday. However, there was a significant blockage around the region of duodenal bulb which was suspicious of a growth and ERCP scope could not be passed beyond that, so ERCP intervention could not be performed. Apparently, it looks like endoscopically, PEG tube was also not placed considering edema. SUBJECTIVE: The patient denies any complaints. We discussed about ERCP finding. We discussed about lab findings. I discussed the plan of care. All of her questions have been answered. One of patient's family members also at bedside and her concerns have been addressed. OBJECTIVE: Vital signs: Temperature 97.7 degrees, pulse 96, respiratory rate of 18, blood pressure of 108/71, saturating 98% on 2 L nasal cannula. General: Appears cachectic, not in any acute distress. She has loss of scalp hair. Oral cavity is moist. Lungs: Air entry bilaterally equal. No wheeze, rhonchi, crackles. Cardiovascular: S1, S2 normal. No murmur or gallop. She has a right-sided chest port. Abdomen: Soft, not tender. Active bowel sounds. Extremities: Mild lower extremity edema bilaterally. Input and output not significant. SIGNIFICANT LABORATORY DATA: Today suggestive of hyperchloremia, low bicarbonate, normal kidney function. Her bilirubin has been showing a declining trend, so is AST. She continues to have significant hypoalbuminemia. MICROBIOLOGY: No new microbiological data. IMAGING: No new imaging. ASSESSMENT AND PLAN: 1. Sepsis due to bilateral lower lobe pneumonia and suspected acute cholangitis with negative culture data so far. Continue intravenous vancomycin and cefepime as per ID recommendation. The initial plan was to discharge the patient on IV antibiotics and arrangements were being made for home IV antibiotic infusion. However, I will hold off on that plan since I am keeping patient inside the hospital. Continue to monitor the patient's liver function tests, which have been showing declining trend. She does not have any clinical icterus. 2. History of metastatic pancreatic adenocarcinoma diagnosed in August 2018 with lung metastasis as well as new suspected liver metastasis, and now a growth narrowing the duodenal lumen. She has been on Abraxane and Gemzar, last dose being on November 16. Oncology on board. I appreciate recommendation regarding surgical consult and possible PEG tube placement in future. The patient has been started on peripheral parenteral nutrition and I will continue to encourage patient on taking p.o. diet. Continue lactobacillus and loperamide for diarrhea, which has improved. Continue DVT prophylaxis with enoxaparin, and pantoprazole for GI prophylaxis. 3. Disposition. My plan is to continue to monitor patient inside the hospital as we trend her liver function tests. Once the liver function tests continue to decline and reach an acceptable level, at that point I will consider discharging her, which I would anticipate in next 48 to 72 hours. I will also discuss with Infectious Disease about the need of p.o. antibiotics at the time of discharge instead of IV considering the patient is likely going to get a few more days of IV antibiotics inpatient. Plan of care was discussed with the patient. All of her questions have been answered. cc: Aryan Oquendo MD MTDD
[2018-12-05] MEDS: PROTONIX IV SCH (18:13)
[2018-12-05] MEDS: CARAFATE LIQUID PO SCH ×2 (18:13→20:37)
[2018-12-05] MEDS: CLINIMIX E 4.25%-5% SOLUTION 1,000 ML IV SCH (18:14)
--- NOTE | 2018-12-05 19:13 | GASTROENTEROLOGY PROGRESS NOTE ---
DATE: 12/05/2018 SUBJECTIVE: Patient resting in bed. Her family was at bedside. I spoke to the parents, , and other family members at the bedside. The patient had an ERCP done yesterday by Dr. Duval, but the scope was unable to pass the duodenal bulb because of tumor related obstruction. Today, she has been afebrile. She has moved her bowels yesterday. She continues to have abdominal discomfort which she grades as 6/10. OBJECTIVE: Vital signs: Temperature 97.5, pulse rate 108, respiratory rate of 18, blood pressure 124/70, saturating 96% on room air. Body weight 170 pounds and 2 ounces. BMI 19.5. General: Thinly built, lying in bed in no acute distress. HEENT: Pale conjunctiva, anicteric sclerae. Neck: Supple. Abdomen: Discomfort in the periumbilical region. No rebound. Extremities: No cyanosis, clubbing. Neurologic: Alert, awake, oriented x3. LABS: Sodium 130, potassium 3.8, chloride 100, bicarb 21, anion gap 9, BUN of 9, creatinine 0.5, glucose of 144. Calcium is 7.2, total bilirubin is 2.33. AST 19, ALT 13, alkaline phosphatase 227, total protein 4.4, albumin 1.6. Stool studies: C difficile toxin is negative. Blood cultures x2 negative at 48 hours from 11/30/2018. Urine culture showed no growth. IMPRESSION AND PLAN: 1. Duodenal bulb obstruction noted on endoscopic retrograde cholangiopancreatography. Unable to reach the metal stent which was initially placed for CBD obstruction and Pancreatic cancer per the endoscopic retrograde cholangiopancreatography report from yesterday. Per Dr. Duval recommendation, will continue on IV antibiotics, and she is on cefepime and vancomycin. We will discuss this with Dr. Min if she is a candidate for another attempt, possibly at [facility]. 2. Malnutrition. She is on Clinimix at 50 mL/hour and Ensure. 3. Metastatic pancreatic cancer. Being treated by Dr. Min. 4. Deep venous thrombosis prophylaxis with Lovenox. 5. GI prophylaxis with Protonix b.i.d. 6. Sepsis due to bilateral lower lobe pneumonia and suspected acute cholangitis with negative cultures so far. This is being treated by the Infectious Disease team and the primary care team. 7. I discussed the above scenario with the patient and family at bedside. All questions answered. 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 If that happens, she may be a candidate for J- tube placement. In the interim, our main focus is to clear the infection and to decide if she needs to have another shot at endoscopic retrograde cholangiopancreatography at a tertiary care facility in order to evaluate the metallic common bile duct stent. The above plans were discussed with the patient and the family, and all questions answered. Please call us with any further questions. cc: MD Azael Murguia MD MTDD
[2018-12-05] MEDS: MELATONIN PO SCH (20:38)
[2018-12-06] MEDS: CARAFATE LIQUID PO SCH ×4 (02:27→21:16)
[2018-12-06] MEDS: NORCO-5 PO PRN ×4 (05:39→21:26)
[2018-12-06] MEDS: PROTONIX IV SCH ×2 (05:39→16:04)
[2018-12-06] MEDS: LOVENOX SUBQ SCH (05:40)
[2018-12-06 07:18] LABS: BASO# 0.05 X1000 (0.0-0.2); BASO% 0.6 % (0.0-0.8); HEMATOCRIT 31.1 % (37.0-47.0); HEMOGLOBIN 10.1 g/dL (12.0-16.0); IMM GRAN# 0.03 X1000 (0.0-0.04); IMM GRAN% 0.3 % (0.0-0.5); LYMPH# 0.93 X1000 (1.2-3.4); LYMPH% 10.8 % (20.5-51.1); MCH 33.2 PG (27-31); MCHC 32.5 g/dL (33-37); MCV 102.3 FL (81-99); MONO# 1.11 X1000 (0.11-0.59); MONO% 12.9 % (1.7-9.3); NEUT# 6.47 X1000 (1.4-6.5); NEUT% 75.4 % (42.2-75.2); PLT 105 X1000 (130-400); RBC 3.04 XMIL (4.2-5.4); RDW 28.9 % (11.5-14.5); WBC 8.59 X1000 (4.8-10.8)
[2018-12-06 07:29] LABS: ESTIMATED GFR > 60
[2018-12-06 07:36] LABS: AGAP 6; ALB/GLOB RATIO 0.5; ALBUMIN 1.5 g/dL (3.5-5.0); ALKALINE PHOSPHATASE 224 U/L (32-104); BUN 11 mg/dL (8-22); CALCIUM 7.4 mg/dL (8.8-10.2); CHLORIDE 110 mmol/L (98-107); COSMO 274; CREATININE 0.5 mg/dL (0.5-0.9); GLUCOSE 140 mg/dL (70-104); GOT 81 U/L (10-30); GPT 36 U/L (10-36); POTASSIUM 3.6 mmol/L (3.5-5.1); SODIUM 136 mmol/L (136-145); TCO2 20 mmol/L (25-35); TOTAL BILIRUBIN 2.12 mg/dL (0.20-1.00); TOTAL PROTEIN 4.3 g/dL (6.3-8.3)
[2018-12-06] MEDS: CULTURELLE PO SCH ×2 (09:26→21:16)
[2018-12-06] MEDS: TUMS PO SCH ×2 (09:27→21:16)
[2018-12-06] MEDS: VANCOMYCIN 1,000 MG in NS 250 ML IV SCH ×2 (09:31→21:17)
--- NOTE | 2018-12-06 10:21 | Diag Imaging Result Doc PS360 ---
EXAM: CHEST-2 VIEWS INDICATION: Evaluate for pulmonary edema/pneumonia TECHNIQUE: 2 views COMPARISON: 12/04/2018 FINDINGS: The right chest port is in stable position. The small left pleural effusion seen on previous study has increased somewhat. The effusion on the right is not identified on the current study, possibly positional. There is increased atelectasis at the left lung base but improved atelectasis at the right lung base. Ill-defined perihilar consolidations are essentially stable. There is slight increased opacity in the right upper lobe as compared to the previous study. No other new consolidations are identified. Cardiac silhouette is stable. IMPRESSION: 1.Increase in the small left pleural effusion during the interval but gross resolution of the effusion on the right, possibly positional. 2.Worsened atelectasis at the left lung base but improved on the right. 3.Perihilar infiltrates are approximately stable but there is slight increased opacity in the right upper lobe. Electronically signed by Fabrizio Rodriguez 12/06/2018 10:19 AM
[2018-12-06] MEDS: MAXIPIME 1 GM in NS 50 ML IV SCH ×2 (11:26→23:33)
[2018-12-06] MEDS ORDERED: LASIX IV ONE (11:35)
--- NOTE | 2018-12-06 13:00 | PROGRESS NOTE ---
DATE: 12/06/2018 INTERVAL HISTORY: No acute events overnight. SUBJECTIVE: The patient denies any chest pain but she is feeling a little short of breath. We discussed about getting an x-ray of the chest. We discussed about my discussion with the oncologist yesterday and the ERCP finding, and I answered all of her questions. Currently, she states that she has been eating a little bit. She is also receiving parenteral nutrition. She does not have any diarrhea anymore. VITALS: Temperature 98 degrees, pulse 110, respiratory rate 20, blood pressure 120/70, saturating 94% on 2 L nasal cannula. PHYSICAL EXAMINATION: General: She does not appear in any acute distress. Oral cavity is dry. Lungs: Decreased air entry with inspiratory crackles at bilateral inframammary region. No wheeze or rhonchi. S1, S2 normal. No murmur, rub, or gallop. She is tachycardic. She has a right- sided chest port. Abdomen: Soft, nontender. Active bowel sounds. Extremities: Bilateral lower extremity edema. Cumulative input and output suggests she is positive 12 L. LABS: Suggestive of resolution of leukocytosis, macrocytic anemia which is stable. She does have a thrombocytopenia, hyperchloremia. Her magnesium level is okay. No new microbiological data. IMAGING: Chest x-ray suggests bilateral mild pleural effusions and pulmonary vascular congestion with pulmonary edema. ASSESSMENT AND PLAN: 1. Sepsis on presentation has resolved due to bilateral lower lobe pneumonia and suspected acute cholangitis with negative culture data so far. Continue intravenous vancomycin and cefepime as per infectious disease recommendation. I will appreciate infectious disease recommendation about changing her antibiotics to oral at the time of discharge. Continue to monitor liver function tests. 2. Acute hypoxic respiratory failure. She is a little more hypoxic today so I repeated the chest x-ray which suggested persistent bilateral pleural effusion, though they are minimal. I will go ahead and give her a dose of Lasix and follow up her clinically tomorrow. 3. History of metastatic pancreatic adenocarcinoma diagnosed in August 2018 with lung metastasis as well as now new diagnosis of liver metastasis and a duodenal mass suspected on esophagogastroduodenoscopy. She has been on Abraxane and Gemzar. Though her tumor burden might have increased, her tumor markers are decreasing. Oncology on board and they will consider future plan of a duodenal stent and a percutaneous endoscopic gastrostomy tube in the future. Continue deep venous thrombosis prophylaxis with enoxaparin. Continue parenteral nutrition as well as oral diet to nutritionally optimize her and continue pantoprazole for gastrointestinal prophylaxis. 4. Obstructive jaundice on presentation with elevated bilirubin with suspicion of a common bile duct stent obstruction. The endoscopic retrograde cholangiopancreatography was attempted. However, it could not be performed since the scope could not be passed through a duodenal mass which was new. Currently, her liver function enzymes have been declining. I will continue to monitor bilirubin. 5. Protein calorie malnutrition: Continue to encourage PO intake and continue parenteral nutrition. 5. Disposition. I plan to keep the patient inside the hospital for another 24 to 48 hours, making sure that bilirubin is becoming close to normal. If her liver function tests continue to go down, then I will consider discharging her on oral antibiotics in the next 24 to 48 hours. Plan of care discussed with the patient. All of her questions have been answered. I will also appreciate oncology recommendations. cc: Aryan Oquendo MD MTDD
[2018-12-06] MEDS: CLINIMIX E 4.25%-5% SOLUTION 1,000 ML IV SCH (14:49)
[2018-12-06] MEDS ORDERED: LASIX PO ONE (17:42)
--- NOTE | 2018-12-06 18:20 | GASTROENTEROLOGY PROGRESS NOTE ---
DATE: 12/06/2018 SUBJECTIVE: The patient is resting in bed. I spoke to the patient's family at bedside. The patient has been feeling the same. She has abdominal discomfort which she grades a 4/10. She denies any fevers, rigors, or chills. She is keeping liquids down. She had moved her bowels today. OBJECTIVE: Vital signs: Temperature 98 degrees, pulse rate 110, respiratory rate of 20, blood pressure 120/70, saturating 94% on nasal cannula. Body weight of 170 pounds 2 ounces. General Appearance: Thinly built, lying in bed. No acute distress. HEENT: Pale conjunctivae. Mild icterus. Nasal cannula in place. Neck: Supple. Abdomen: Discomfort in the periumbilical region. No rebound Extremities: No cyanosis, clubbing. Neurologic: Alert, awake, oriented x3. LABS: Her hemoglobin and hematocrit are 10.1 and 31, WBC 8.59, platelet count of 105,000. Sodium 130, potassium 3.6, chloride 110, bicarb 20, anion gap of 6, BUN of 11, creatinine 0.5, glucose of 140, calcium is 7.4, total bilirubin is 2.12, AST 81, ALT 36, alkaline phosphatase 224, total protein 4.3, albumin 1.5. Chest x-ray done today showed increase in the small left pleural effusion during interval but gross resolution of the effusion on the right, possibly positional worsened atelectasis at the left lung base but improved to the right. Perihilar infiltrates are approximately stable. There is a slight increase opacity in the right upper lobe. IMPRESSION AND PLAN: 1. Sepsis on presentation, likely due to bilateral lower lobe pneumonia and suspect acute cholangitis. She is on vancomycin and cefepime per ID. 2. Metastatic pancreatic cancer status post metal stent placement and undergoing chemotherapy per Dr. Min. Dr. Min is following. 3. Obstructive jaundice and ? cholangitis but unfortunately the ERCP was unsuccessful because the scope could not pass through the duodenal bulb stricture which appears to be malignant from pancreatic cancer. Dr. Duval could not reach the stent. 4. Acute hypoxic respiratory failure. Being managed by the primary team. 5. Gastrointestinal prophylaxis with PPIs. 6. Pain control with IV morphine. 7. Malnutrition and hypoalbuminemia. She is on Clinimix. She is on Ensure and full liquid diet. 8. Deep vein thrombosis prophylaxis with Lovenox. 9. We will discuss with Dr. Min tomorrow about the possibility of reattempting an ERCP to that the common bile duct stent could be assessed for any obstruction. She may also need to be assessed for a duodenal stent, although it will be challenging as the patient already has a metal stent in the common bile duct. The above plan was discussed with the patient and the family at bedside and all of the questions were answered. Please call us with any further questions. cc: MD Azael Murguia MD MTDEwa
[2018-12-06] MEDS: KLOR-CON PO SCH ×2 (18:46→21:17)
[2018-12-06] MEDS: MELATONIN PO SCH (21:16)
[2018-12-07] MEDS: CARAFATE LIQUID PO SCH ×2 (03:58→09:58)
[2018-12-07] MEDS: PROTONIX IV SCH (04:43)
[2018-12-07] MEDS ORDERED: SODIUM CHLORIDE 0.9% INJ PRN (04:44)
[2018-12-07] MEDS: CLINIMIX E 4.25%-5% SOLUTION 1,000 ML IV SCH (06:11)
[2018-12-07] MEDS: LOVENOX SUBQ SCH (06:21)
--- NOTE | 2018-12-07 09:27 | INFECTIOUS DISEASE PROGRESS NO ---
DATE: 12/07/2018 HISTORY OF PRESENT ILLNESS: The patient has a bibasilar pneumonia and cholangitis. MEDICATIONS: The patient is receiving a combination of cefepime and vancomycin. PHYSICAL EXAMINATION: Vital Signs: Temperature is 98.2 degrees, pulse 101, respirations 17, blood pressure 102/59. General: This is a chronically ill-appearing and malnourished-appearing, middle-aged female. She is in no acute distress. Head/eyes/ears/nose/throat: She can hear my spoken words and see near objects. She does not have any white patches on her tongue. Neck: She does not have any pain when she bends her neck. Lungs: Clear to auscultation. Cardiovascular: Regular heart rate. Thorax: The patient has a Port-A-Cath on the right side. The site is not swollen, purulent, or tender. Abdomen: Soft and nontender. Extremities: The patient has bilateral leg edema, which is improved over what it was a week ago and it is not erythematous. LAB AND X-RAY: Chest x-ray shows an increase in the left pleural effusion and resolution of the right pleural effusion. There is worsening left lung atelectasis and improved right lung atelectasis, and there are stable perihilar infiltrates. The patient's CBC shows a white count of 8590, hemoglobin 10.1, and platelet count 105,000. Creatinine is 0.5. GFR is greater than 60. Liver function studies are normal except for an alkaline phosphatase of 224. The patient underwent endoscopy in the end of last week and the stent was found to be occluded by the patient's pancreatic cancer. ASSESSMENT AND PLAN: The patient seems to be doing better even though her stent was occluded by tumor. Our plan is to send the patient home on oral antibiotics consisting of Ceftin 250 mg p.o. every 12 hours and doxycycline 50 mg p.o. every 12 hours, both for 1 week. I have requested that the patient have a followup appointment in my office in 1 week at which time the patient will be examined and the x-ray will be repeated. COMORBIDITIES: The patient has metastatic pancreatic cancer and she is malnourished. cc: Stefano Boswell MD
[2018-12-07] MEDS: NORCO-5 PO PRN (09:55)
[2018-12-07] MEDS: TUMS PO SCH (09:58)
[2018-12-07] MEDS: CULTURELLE PO SCH (09:58)
--- NOTE | 2018-12-07 11:55 | GASTROENTEROLOGY PROGRESS NOTE ---
DATE: 12/07/2018 SUBJECTIVE: This morning, I spoke to Dr. Andreas Mcfadden at [facility] in [place], and we discussed the case, including the evidence of possible cholangitis and duodenal obstruction. The patient will be transferred today to [facility] to pursue ERCP and possible duodenal stent placement. I spoke to the patient and family at bedside. I discussed all the above, and they acknowledged and agreed to proceed with the above. OBJECTIVE: Vital signs: Temperature is 97.8, pulse rate 112, respiratory rate 16, blood pressure 103/67, saturating 94% on 1 L nasal cannula. Body weight: 117 pounds 2 oz. BMI 19.5 kg/m2. General: The patient is thinly built, lying in bed, in no acute distress. HEENT: Pale conjunctiva. Mild icterus. Nasal cannula in place. Neck is supple. Abdomen: There is discomfort in the epigastric region region. No rebound. Extremities: No cyanosis or clubbing. Neurologic: She is alert, awake, oriented x3. LABORATORIES: Hemoglobin 10.1, hematocrit 31.1, white count of 8.59, platelet count of 105,000, MCV of 102.3. Sodium 136, potassium 3.6, chloride 110, bicarbonate 20, anion gap of 6, BUN of 11, creatinine 0.5, glucose of 140, calcium 7.4, total bilirubin is 2.12, AST 81, ALT 36, alkaline phosphatase 224, total protein 4.3, Albumin level of 1.5. IMPRESSION AND PLAN: 1. Sepsis on presentation secondary to presumed cholangitis and bilateral lower lobe pneumonia. She is improving. She is on cefepime and vancomycin per ID. 2. Metastatic pancreatic cancer status post metal stent placement done on 08/14/[address] Duval. Repeat ERCP on 12/04/2018 showed evidence of duodenal stricture, and the scope was not able to be advanced to the stent. She is under the care of Dr. Min. 3. Obstructive jaundice and question of cholangitis. We will transfer to [facility] today under care of Dr. Andreas Mcfadden. They will plan for ERCP and possible duodenal stent placement. 4. Acute hypoxic respiratory failure, improved. 5. Malnutrition. She is continued on Clinimix and Ensure and full liquid diet. 6. Pain control. IV morphine. 7. Gastrointestinal prophylaxis. PPIs. 8. Deep vein thrombosis prophylaxis. Lovenox. The above plan of care was discussed with the patient and family at bedside, and all questions were answered. Please call us with any further questions. cc: MD Andreas Murguia MD Naveen T. Lobo, MD Marlin D. Gill, MD MTDD
--- NOTE | 2018-12-07 12:14 | HEMO/ONC PROGRESS NOTE ---
DATE: 12/07/2018 SUBJECTIVE: The patient continues to be weak at this time. The patient did have some abdominal pain. No other new complaints at this time. OBJECTIVE: Vital Signs: Temperature 97.8 degrees, heart rate 112, respiratory rate 16, blood pressure 130/67, saturation 94% on nasal cannula. General: The patient is awake, lying in bed, no acute distress noted. HEENT: Anicteric. Pupils PERRLA. Mucous membranes dry. Cardiovascular: S1-S2 increased rate and rhythm. Chest: Bilateral breath sounds diminished bilaterally. Abdomen: Soft, nontender. Bowel sounds present in all 4 quadrants. Neurologic: Alert and oriented x3. No focal deficits noted. LABORATORY DATA: White blood cell count is 8.59, hemoglobin 10.1, hematocrit 31.1, platelets 105,000. Potassium 3.6, BUN 11, creatinine 0.5, calcium 7.4, total bilirubin 2.12, AST 81, ALT 36, alkaline phosphatase 224. ASSESSMENT/PLAN: 1. Metastatic pancreatic carcinoma: Treatment on hold until the patient improves. Continue to monitor closely. The patient will be transferred to [facility] for further evaluation of her duodenal mass as well. 2. Leukocytosis: Continues to improve. Continue antibiotics as ordered. 3. Elevated liver enzymes and cholangitis: ERCP unable to be performed due to colon mass. The patient will be transferred to [facility] for further evaluation of colon mass and for possible ERCP to evaluate the stent at that time. We will continue to monitor closely. 4. Pneumonia: Continue antibiotics per Infectious Disease and Primary Medical Team. Dictated by HERNANDO Beaulieu for Azael Min MD Patient seen and examined. Discussed with Dr. Guzman. Plan to get her to [place] for duodenal stent placement and flushing of his ERCP stent. Continue antibiotics. Azael Min M.D. MTDD
[2018-12-07] MEDS: MAXIPIME 1 GM in NS 50 ML IV SCH (12:16)
[2018-12-07 12:35] VITALS: BP 111/62
--- NOTE | 2018-12-07 20:27 | DISCHARGE SUMMARY ---
ADMISSION DATE: 11/30/2018 DISCHARGE DATE: 12/07/2018 DISCHARGE DISPOSITION: Likely [facility] ER. DISCHARGE CONDITION: Stable. Patient was hemodynamically stable except tachycardia with heart rate of 110 per minute and need for 2 L nasal cannula home oxygen. She was alert and oriented x3. DISCHARGE DIAGNOSIS: 1. Sepsis due to bilateral lower lobe pneumonia. 2. Acute cholangitis leading to sepsis. 3. Acute hypoxic respiratory failure due to volume overload with bilateral pleural effusion requiring oxygen through nasal cannula . 4. Obstructive jaundice likely due to suspected blockage of previously placed common bile duct stent with failed repeat ERCP procedure due to a mass in duodenum. 5. History of metastatic pancreatic adenocarcinoma with new finding of new hepatic metastasis and a mass obstructing duodenum. 6. Protein calorie malnutrition. OTHER DIAGNOSIS: 1. History of essential hypertension. 2. Hypothyroidism. 3. Metastatic pancreatic adenocarcinoma with lung metastasis diagnosed in August 2018 on chemotherapy. RECORDED VITALS: At the time of discharge temperature 98 degrees, pulse 115, respiratory rate 16, blood pressure 110/62, saturating 97% on 1 L nasal cannula. PHYSICAL EXAMINATION: At the time of discharge I was not able to examine the patient before discharge as before I could see her she was transferred to outside hospital, likely [facility]. However I was not entirely aware about the fact that patient was going to get transferred today. On my previous physical examination on December 06 the patient was not in any acute distress. Oral cavity was dry. She did have decreased air entry with inspiratory crackles in bilateral inframammary region following which I had given her Lasix and her oxygen requirement on records had gone down. No wheeze or rhonchi. S1, S2 normal. No murmur or gallop. Abdomen was soft, nontender with active bowel sounds. She had a right-sided chest port. She had bilateral lower extremity edema. SIGNIFICANT LAB FINDINGS: On admission she did have white cell count of 34,000 which at the time of discharge was 8.5. Her hemoglobin was stable around 10.2. She did not really require any transfusion. Her platelet count was fluctuating between 140,000 and 105,000. At the time of discharge her potassium was 3.6, chloride 110, bicarbonate 20, BUN 11, creatinine 0.5, her total bilirubin at the time of admission was 4.1 which had decreased to 2.1 at the time of discharge. Her ALT at the time of admission was 46 which had normalized to 36 at the time of discharge, her albumin was 1.5. Significant microbiology, clostridium difficile toxin assay, urine culture, blood culture did not have any growth and toxin assay was negative. SIGNIFICANT IMAGING: The patient underwent chest x-ray on admission which had bronchopneumonia with basilar atelectasis. Abdomen, pelvis CT on November 30 had suggested bilateral pleural effusion, pulmonary metastatic lesions and patchy pneumonia, worsened hepatic steatosis and new hepatic metastatic disease, worsened splenomegaly and portal hypertension, worsened retroperitoneal adenopathy and slightly improved pancreatic mass, mild anasarca and ascites. Chest x-ray on October 06 had detected increase in the small left pleural effusion with gross resolution of the right-sided effusion. There was worsen atelectasis of the lung base but improved on the right and the perihilar infiltrate as well. Approximately stable . DISCHARGE MEDICATIONS: At the time of discharge the patient was on intravenous vancomycin and cefepime and the plan was to change that medication to p.o. cefuroxime 250 mg every 12 hours for 14 tablets and p.o. doxycycline 50 mg p.o. q.12 hours for 14 capsules. Since I am dictating this after the patient has been discharged, the exact medication list is not available to me however yesterday she was on lorazepam 1 mg as needed for anxiety, [place] 5 every 6 hours as needed for pain, Zofran 4 mg IV as needed for vomiting and nausea, levothyroxine 75 mcg daily, tizanidine 4 mg b.i.d. as needed. HOSPITAL COURSE SUMMARY: Ms. Rich is 58 years old lady with history of metastatic pancreatic adenocarcinoma who was directly presented from his office for complaints of extreme weakness with mild fever of 100.5 during a week prior to presentation. In the office visit her hemoglobin was 6.3 and platelet count was low so she was given 2 units of packed red blood cells and 1 unit of platelet. When she followed up again in his office she was found to have low-grade fever and her weakness and anorexia had significantly increased so repeat of blood count was performed which had suggested WBC count of 37,000. She was sent to the hospital for direct admission. In the hospital she was found to have sepsis with elevated white blood cell count and tachycardia. The chest imaging had suggested bilateral pneumonia and the liver function tests had suggested significantly elevated bilirubin to 4.1 which was normal historically, she was started on intravenous fluids, intravenous antibiotics and culture data were sent. With intravenous antibiotics her blood count had started going down. Considering her obstructive jaundice with elevated total bilirubin an ERCP was attempted to look for potential obstruction of stent which was placed early 2018 because of her pancreatic adenocarcinoma. However the ERCP could not be passed beyond the duodenum where the mass was encountered which was blocking the scope so the procedure was aborted. Meanwhile patient's liver function tests had started improving on its own and her bilirubin had started coming down to 2.1 so she was just managed conservatively with that regards. At the time of discharge patient's WBC count had normalized. She was hemodynamically stable except her tachycardia and her liver function tests were trending down. The patient continues to have poor nutritional status and parenteral nutrition was initiated. However considering her new diagnosis of a duodenal mass and need for PEG tube placement and poor nutritional status it was decided to transfer patient to higher level of care and so hematology team, oncology team had initiated transfer to [facility]. Patient was transferred out of the hospital before I could see her. TIME SPENT: More than 30 minutes. cc: Aryan Oquendo MD
== END 2018-12-07 14:07 | disposition short-term general hospital (02) | DRG 871 ==
LOC: DIRADM 11:37 → SUATTDRO 11:37 → 3N 12:00
PROVIDERS: ATTEND Internal Medicine
CPT/HCPCS: 71010; 71020; 71045; 71046; 74177; 74330; 80048; 80053; 80202; 81001; 82330; 83735; 85025; 87040; 87088; 87324; 93005; 93010; 94667; 94668; 94760; 94761; 94799; A9270; C9113; J0610; J0692; J1650; J1940; J2250; J2370; J2405; J2543; J3370; J3480; J7030; J7050; Q9966; Q9967; S0164

== ENCOUNTER 2019-01-31 17:41 | Inpatient (IN) ==
--- NOTE | 2019-01-31 18:55 | PROVIDER DOCUMENTATION ---
This chart was entered by Rachelle Kay Scribe, acting as scribe for Shay Perla DO. HPI-General Adult - General Chief Complaint: Altered Mental Status Stated Complaint: CANCER PT /DELIRIOUS Time Seen by Provider: 01/31/19 18:05 Source: patient Allergies/Adverse Reactions: Patient Allergies Allergy/AdvReac Type Severity Reaction Status Date / Time No Known Allergies Allergy Verified 08/21/18 07:55 Home Medications: Home Medication List Medication Instructions Recorded Confirmed Last Taken Type Bisoprolol/Hctz [Ziac 5/6.25 mg] 1 each PO DAILY 08/13/18 11/23/18 11/23/18 History Levothyroxine [Synthroid] 75 microgm PO DAILY 08/13/18 11/23/18 11/22/18 History Tizanidine [Zanaflex] 4 mg PO BID PRN 08/13/18 11/23/18 08/20/18 21:00 History Hydrocodone/APAP 5 mg/325 mg 1 each PO Q6H PRN PRN 09/21/18 11/23/18 11/22/18 History [[place]-5] Levofloxacin [Levaquin] 750 mg PO DAILY #9 tab 09/21/18 11/23/18 Unknown Rx Lorazepam 1 mg PO DAILY PRN 09/21/18 11/23/18 Unknown History Metoclopramide [Reglan] 10 mg PO Q6HR PRN 09/21/18 11/23/18 11/22/18 History Ondansetron HCl 4 mg PO Q6H PRN PRN 09/21/18 11/23/18 Unknown History Promethazine [Phenergan] 25 mg PO Q6H PRN PRN 09/21/18 11/23/18 11/21/18 History CefUROXIME [Ceftin] 250 mg PO Q12HR #14 tab 12/07/18 Unknown Rx Doxycycline 50 mg PO Q12H #14 cap 12/07/18 Unknown Rx - History of Present Illness -Gen Adult Nature of Presenting Problems: Pt is 58/F presenting to ED w/ AMS. Pt has pancreatic cancer and is not currently taking treatments, due to lack of nutrition. Pt's at bedside sts that she has not eaten in about 3 days, and when she tries she vomits. Last night she became unresponsive to questions and very listless. She appears to be uncomfortable, but is not expressing any specific pain. Her oncologist is Dr. Min and he has been contacted. Location of Pain/Injury: reports: generalized Pain Radiation: reports: no radiation Quality of Pain: reports: other (unsure due to lack of responsiveness) Onset/Duration: reports: last night Timing: reports: still present Context/Activities at Onset: reports: none Modifying Factors: improves with: nothing Associated Symptoms: reports: loss of appetite, vomiting. denies: diaphoresis, diarrhea, shortness of breath Similar Symptoms Previously?: No Recently seen or treated by another doctor?: Yes Review of Systems - Adult - REVIEW OF SYSTEMS - ADULT ROS:: limited per condition Constitutional: reports: no symptoms reported. denies: chills, fever Eyes: reports: no symptoms reported Ears, Nose, Mouth & Throat: reports: no symptoms reported Cardiovascular: reports: no symptoms reported Respiratory: reports: no symptoms reported Gastrointestinal: reports: vomiting Genitourinary: reports: no symptoms reported Musculoskeletal: reports: no symptoms reported Integumentary: reports: no symptoms reported Neurological: reports: no symptoms reported Psychiatric: reports: no symptoms reported Endocrine: reports: no symptoms reported Hematologic/Lymphatic: reports: no symptoms reported Allergic/Immunologic: reports: no symptoms reported All Other Systems: Reviewed and Negative Past History - Adult - PAST MEDICAL HISTORY-ADULT Review of Records: reports: Old Records Reviewed, Nursing Assessment Review, Medications Reviewed, Social history reviewed & non-contributory. Major Childhood Illnesses: reports: denies history Cardiovascular: reports: HTN Respiratory: reports: cancer (Lung) Gastrointestinal: reports: cancer (pancreatic) Obstetrical/Gynecological: reports: denies history Genitourinary: reports: denies history Musculoskeletal: reports: denies history Neurological: reports: denies history Endocrine/Immune: reports: denies history Other Conditions: reports: denies history - IMMUNIZATION STATUS Childhood Immunizations: See Nurse Assessment Flu Vaccine: See Nurse Assessment - FAMILY HISTORY Family History: reviewed, not pertinent - SOCIAL HISTORY Smoking: denies, non-smoker Substance Use: none/never Alcohol Use Frequency: occasionally Living Situation: family Physical Exam-General - PHYSICAL EXAM-ADULT Initial Vital Signs Reviewed: Yes - CONSTITUTIONAL General Appearance: mild distress, thin, other (Pt is minimally responsive, alert but not responsive to questions. Tossing and turning in bed.) - EYES Eyes: PERRL/EOMI, pink conjunctivae, other (pupils are equal and reactive) - HEAD, EARS, NOSE, MOUTH & THROAT HENMT: normocephalic/atraumatic, moist mucous membranes, normal ENT inspection, TMs normal, pharynx normal - NECK Neck: non-tender, full range of motion, supple, normal inspection - RESPIRATORY Respiratory: lungs clear - CARDIOVASCULAR Cardiovascular: regular rate, rhythm, systolic murmur (3/6 systolic murmur) - GASTROINTESTINAL (ABDOMEN) Abdominal Exam: normal bowel sounds, non tender, soft - LYMPHATIC Lymphatic: no adenopathy - MUSCULOSKELETAL Back Exam: normal inspection, no CVA tenderness, no vertebral tenderness Extremity: normal range of motion, non-tender, normal gait, other (Pitting edema both lower legs bilaterally) - SKIN Integumentary: normal color, warm/dry - NEUROLOGIC Neurologic: grossly normal - PSYCHIATRIC Psych/Mental Status: other (pt is alert, but not responsive to questions.) Progress - PLAN OF CARE/RESULTS Progress/Plan/Lab Results: Vital Signs - 8 hr 01/31/19 17:44 Temperature 97.6 F Pulse Rate 71 Respiratory Rate 18 Blood Pressure 98/57 O2 Sat by Pulse Oximetry 99 - CHANGE OF SHIFT REPORT (ED Provider) 1 Report Given and Care Transferred to:: Dr Glez Time of Transfer: 19:00 Items Pending: Labs, CT/MRI Results Departure - Departure Referrals and Follow-Ups: Yumi Butsamante MD [Primary Care Provider] - Attestation - Physician/ PAOLO Attestation Patient care was provided by Advanced Practice Provider:: No The physician spent face to face time with patient:: Yes Advanced Practice Provider documentation review:: Supervising physician onsite and consulted in the evaluation and care of this patient. The physician did have a face to face encounter with the patient. This chart was documented by the indicated scribe, (Rachelle Kay, Jolene) and accurately reflects the services I performed and decisions made by , Shay Perla DO, as attested by the provider's signature.
--- NOTE | 2019-01-31 19:19 | Diag Imaging Result Doc PS360 ---
CT HEAD W/O CONTRAST - 01/31/2019 INDICATION: altered mental status COMPARISON: None FINDINGS: The ventricles and sulci are normal in size and contour. No intracranial mass or hemorrhage. The skull is intact. The sinuses mastoids and middle ears are clear. IMPRESSION: Negative exam. This exam was performed using automated exposure control, adjustment of mA or kV according to patient size, and/or use of iterative reconstruction technique Electronically signed by Jayden Briggs 01/31/2019 7:17 PM
[2019-01-31 20:39] LABS: BASO# 0.02 X1000 (0.0-0.2); BASO% 0.3 % (0.0-0.8); HEMATOCRIT 31.3 % (37.0-47.0); HEMOGLOBIN 11.1 g/dL (12.0-16.0); IMM GRAN# 0.02 X1000 (0.0-0.04); IMM GRAN% 0.3 % (0.0-0.5); LYMPH# 1.24 X1000 (1.2-3.4); LYMPH% 18.2 % (20.5-51.1); MCH 34.5 PG (27-31); MCHC 35.5 g/dL (33-37); MCV 97.2 FL (81-99); MONO% 7.3 % (1.7-9.3); MPV 8.7 FL (7.4-10.4); NEUT# 5.05 X1000 (1.4-6.5); NEUT% 73.9 % (42.2-75.2); PLT 162 X1000 (130-400); RBC 3.22 XMIL (4.2-5.4); RDW 14.6 % (11.5-14.5); WBC 6.83 X1000 (4.8-10.8)
[2019-01-31 21:16] LABS: ESTIMATED GFR > 60
[2019-01-31 21:22] LABS: AGAP 11; ALB/GLOB RATIO 0.5; ALBUMIN 1.6 g/dL (3.5-5.0); ALKALINE PHOSPHATASE 231 U/L (32-104); BUN 15 mg/dL (8-22); CALCIUM 7.4 mg/dL (8.8-10.2); CHLORIDE 88 mmol/L (98-107); COSMO 262; CREATININE 0.9 mg/dL (0.5-0.9); GLUCOSE 73 mg/dL (70-104); GOT 68 U/L (10-30); GPT 28 U/L (10-36); POTASSIUM 2.9 mmol/L (3.5-5.1); SODIUM 131 mmol/L (136-145); TCO2 32 mmol/L (25-35); TOTAL BILIRUBIN 2.03 mg/dL (0.20-1.00); TOTAL PROTEIN 5.1 g/dL (6.3-8.3)
[2019-01-31] MEDS ORDERED: POTASSIUM CHLORIDE 20% LIQUID PO ONE (21:51)
[2019-01-31] MEDS ORDERED: NS 1,000 ML IV ONE (22:15)
[2019-01-31] MEDS ORDERED: DILAUDID IV ONE (22:15)
[2019-01-31 22:27] LABS: URINE SOURCE CATH
[2019-01-31] MEDS ORDERED: ZOFRAN IV ONE (22:27)
[2019-01-31] MEDS ORDERED: REGLAN IV ONE (22:28)
[2019-01-31 22:58] LABS: COLOR YELLOW; TURBIDITY URINE HAZY (CLEAR); UR EPITHELIAL CELLS <10 /HPF (<10); URINE BACTERIA NEGATIVE /HPF; URINE RBC <10 /HPF (<10); URINE WBC <10 /HPF (<10)
[2019-01-31 22:59] LABS: GLUCOSE URINE NEGATIVE (NEGATIVE)
[2019-01-31 23:00] LABS: BLOOD URINE NEGATIVE (NEGATIVE); KETONE URINE NEGATIVE (NEGATIVE); LEUKOCYTES URINE NEGATIVE (NEGATIVE); NITRITE URINE NEGATIVE (NEGATIVE); PH URINE 5.5; SP GRAVITY URINE 1.023
[2019-01-31 23:29] LABS: BILIRUBIN URINE SMALL (NEGATIVE); PROTEIN URINE 50 mg/dL (NEGATIVE); UROBILINOGEN URINE 3 mg/dL (NORMAL)
[2019-01-31] MEDS ORDERED: D50W SYRINGE IV ONE (23:45)
[2019-01-31 23:55] LABS: URINE CASTS NONE SEEN; URINE CRYSTALS NONE SEEN; URINE SMALL ROUND CELLS NONE SEEN; URINE YEAST PRESENT
[2019-02-01] MEDS ORDERED: NS + KCL 20 MEQ 1,000 ML IV ONE (00:04)
[2019-02-01 00:39] LABS: INR 1.71; PROTIME 21.3 Seconds (11.0-16.0)
[2019-02-01] MEDS ORDERED: MAGNESIUM SULFATE 1 GM/D5W 1 GM/100 ML IVPB IV ONE ×2 (00:42→07:32)
[2019-02-01 00:45] LABS: PTT 63.7 Seconds (22.3-41.8)
[2019-02-01] MEDS ORDERED: REGLAN IV PRN ×2 (01:43→04:30)
[2019-02-01] MEDS ORDERED: ZOFRAN IV PRN (01:43)
[2019-02-01] MEDS ORDERED: D50W SYRINGE IV PRN (01:44)
[2019-02-01] MEDS ORDERED: DILAUDID IV PRN ×2 (01:44→09:49)
[2019-02-01] MEDS ORDERED: TYLENOL PR PRN (01:44)
[2019-02-01] MEDS ORDERED: NS NEB INH SCH (01:45)
[2019-02-01] MEDS ORDERED: SODIUM CHLORIDE 0.9% INJ SCH ×2 (01:45→06:30)
[2019-02-01] MEDS ORDERED: PROTONIX IV SCH (01:45)
[2019-02-01 01:53] LABS: HEMATOCRIT 32.7 % (37.0-47.0); HEMOGLOBIN 11.6 g/dL (12.0-16.0)
[2019-02-01] MEDS: XOPENEX NEB INH SCH ×2 (03:05→10:02)
[2019-02-01] MEDS: ATROVENT NEB INH SCH ×2 (03:05→10:02)
[2019-02-01] MEDS: ZOSYN 3.375 GM in NS 50 ML IV SCH ×2 (03:31→09:26)
--- NOTE | 2019-02-01 05:35 | Diag Imaging Result Doc PS360 ---
EXAM: CHEST-PORTABLE HISTORY: AMS,cough,Pancreatic CA w/lung mets TECHNIQUE: Chest single view COMPARISON: 12/06/2018 FINDINGS: Poor inspiratory effort. There is a right jugular portacatheter. The tip overlies the right atrium. No pneumothorax. No cardiomegaly. There are small to moderate-sized bilateral pleural effusions. Underlying infiltrates and atelectasis in the mid and lower lungs. These are more pronounced on the right than they were previously. IMPRESSION: Interval worsening Electronically signed by Ahmet Gaines 02/01/2019 5:33 AM
[2019-02-01] MEDS ORDERED: NEXIUM IV SCH (06:30)
[2019-02-01 06:53] LABS: BASO# 0.01 X1000 (0.0-0.2); BASO% 0.1 % (0.0-0.8); HEMATOCRIT 29.6 % (37.0-47.0); HEMOGLOBIN 10.4 g/dL (12.0-16.0); IMM GRAN# 0.02 X1000 (0.0-0.04); IMM GRAN% 0.2 % (0.0-0.5); LYMPH# 2.04 X1000 (1.2-3.4); LYMPH% 22.9 % (20.5-51.1); MCH 34.9 PG (27-31); MCHC 35.1 g/dL (33-37); MCV 99.3 FL (81-99); MONO# 0.59 X1000 (0.11-0.59); MONO% 6.6 % (1.7-9.3); MPV 8.8 FL (7.4-10.4); NEUT# 6.26 X1000 (1.4-6.5); NEUT% 70.2 % (42.2-75.2); PLT 137 X1000 (130-400); RBC 2.98 XMIL (4.2-5.4); RDW 14.7 % (11.5-14.5); WBC 8.92 X1000 (4.8-10.8)
--- NOTE | 2019-02-01 06:59 | HISTORY AND PHYSICAL ---
ADDENDUM: Ms. Damaris Rich was brought in because of 2-day history of confusion and an 8-hour history of inability to respond verbally. The patient has longstanding history of stage IV pancreatic cancer. Patient, according to the family, has been in a lot of excruciating pain over the last 24 to 48 hours requiring more pain medication. Brought in because she was became not only confused but unable to verbalize to her family and not able to focus. They did not report any focal motor deficits. CT of the head was done and was negative for any intracranial process. Other blood work of note showed a potassium of 2.9. Bicarb was normal. Chest film showed what I would describe as nodular infiltrates in the right side with some pleural effusion on the right. Also of note, patient had been vomiting, having diarrhea, and there was some question that she may have coffee ground and melenic stools for the last couple of days. On exam, her heart rate was in 140s and 150s. She had been given several boluses since her arrival here. Most recent heart rate has come down to 120s. Blood pressure 94/47, respiratory rate 16. She is afebrile. They did report that she had been started on Marinol recently but has not taken it in the last 24 hours. Other issues of note was the patient's blood sugar was 61. She was given an amp of dextrose but has not really turned her around. So for now, patient has some encephalopathy. We do not know if it is medication related, whether it is metabolic for if it is just some space- occupying lesion, i.e. metastatic disease to her brain. She will get MRI with contrast later today to rule this out. The patient does have what appears be an element of metastatic disease or coexisting pneumonia and she will be treated with Zosyn for possible aspiration. Otherwise acute agitation could be due from poorly controlled pain. Confusion could also be from medication, i.e. Marinol and opioids. We will hydrate the patient because she is clinically dry and replete potassium and magnesium. If this patient does not improve, will withhold any potential nephrotoxic drugs i.e. Reglan and judicious use of pain medication will needed if the patient becomes agitated. A blood gas will also be done in case she is retaining CO2 but her picture does not seem to match that at this point in time. cc: Pushpa Sanchez MD
[2019-02-01] MEDS ORDERED: SYNTHROID PO SCH (07:00)
[2019-02-01 07:28] LABS: AGAP 13; ALB/GLOB RATIO 0.4; ALBUMIN 1.4 g/dL (3.5-5.0); ALKALINE PHOSPHATASE 207 U/L (32-104); BUN 16 mg/dL (8-22); CALCIUM 7.1 mg/dL (8.8-10.2); CHLORIDE 92 mmol/L (98-107); COSMO 265; CREATININE 0.9 mg/dL (0.5-0.9); ESTIMATED GFR > 60; GLUCOSE 120 mg/dL (70-104); GOT 69 U/L (10-30); GPT 31 U/L (10-36); MAGNESIUM 1.5 mg/dL (1.5-2.7); POTASSIUM 2.8 mmol/L (3.5-5.1); SODIUM 131 mmol/L (136-145); TCO2 26 mmol/L (25-35); TOTAL BILIRUBIN 1.88 mg/dL (0.20-1.00); TOTAL PROTEIN 5.1 g/dL (6.3-8.3)
--- NOTE | 2019-02-01 07:30 | HISTORY AND PHYSICAL ---
PRIMARY CARE PROVIDER: Dr. Bustamante. ONCOLOGIST: Dr. Min. ATMOSPHERIC TECHNICIAN: [facility], though it looks as though when she was in the hospital most recently she was seen by Dr. Duval, Dr. Guzman and Dr. Antunez, though Simin is the energy engineer that performed her procedure. CHIEF COMPLAINT: Altered mental status. HISTORY OF PRESENT ILLNESS: Ms. Rich is a 58-year-old female who has a history of metastatic pancreatic adenocarcinoma with lung metastases. She was most recently admitted to our facility on 11/30/2018 and was discharged on 12/07/2018. During this visit she was treated for sepsis secondary to bilateral pneumonia and acute cholangitis. She also did have acute hypoxic respiratory failure due to bilateral pleural effusions. She was found to have obstructive jaundice that was likely due to a suspected blockade blockage of a previously placed common bile duct stent with failed repeat ERCP procedure due to mass in the duodenum. She was ultimately transferred from our facility to [facility] for further treatment and did undergo ERCP with stent placement x2 by Dr. Mcfadden. The patient's as well as her family, which included daughter, granddaughter and [id number] at bedside state that for the past 3 weeks she has had some loose diarrhea that was dark in color, though they denied it being black in color. She simply stated it was just dark. They denied her being on any recent antibiotics. They have reported that she has been complaining of possibly some worsened abdominal pain, though they state that the patient is not one to voice her complaints well. They also report that she has been vomiting at least once a day recently, though over the last day or so she has had quite a few episodes. Here at the hospital, the nurse did report that she had coffee-ground emesis. This was tested and was positive for blood. They also report that recently, approximately a week ago, she was placed on Marinol as well, though they state she has only taken a few doses of this. Her states that normally she will take her pain medicine and will fall asleep a lot of times, though when she is awake she is talkative. He states that starting last night on the , that she has been more lethargic and not like her normal self. He states that she has not really been talking much, that she has been very unsettled and restless. He also reports that he has noticed over the past few days that she has not had a good appetite and has not had good oral intake. They have reported that she has had a cough as well. Also she has had some abdominal distention, though her actually states that this looks better at this time. He also states that she has been having some swelling in her bilateral lower extremities though she does still have approximately 2 to 3+ pitting edema. He reports that it looks better and this is actually an improvement from what previously was. Other than the introduction of her Marinol medication, her denies her having any new medications ordered or any changes to her previous medicines. He also states that she has not received chemo in approximately 5 weeks due to she has been so weak. Upon our evaluation in the ER, the patient was resting in bed. She would open her eyes to verbal stimulation and if you called her name and asked her to look towards you, she would turn her head and look at you, though other than this, she was not able to follow any other commands. She is really not being that verbal though she did answer yes out loud to a question that I had asked but, other than this, this was the only verbal response I was able to get out of her. The patient did have fine crackles noted to the right lung base though all other lung solis were clear to auscultation. Her abdomen is distended. She did have some localization to pain and grimacing upon palpation. Bowel sounds were present, were normoactive. Extremities: The patient does have edema noted to bilateral lower extremities. This is approximately from the knees down. This is 2 to 3+. Due to swelling in her legs, it was difficult to palpate pedal pulses though were easily obtainable with venous Doppler, both bilateral dorsalis pedis and posterior tibialis. Capillary refill is less than 3. Laboratory results revealed that hemoglobin and hematocrit were slightly low though this actually was improved from her previous hemoglobin and hematocrit. The patient's potassium was low as well at 2.9. Magnesium was also low at 1.3. We did note that on her serum chemistry that her glucose was 73. Repeat fingerstick blood sugar did show finding of 61 glucose. She has been given 1 amp of D50. Urinalysis did not show any signs of infection. Chest x-ray did show what appears to be maybe some improvement of a previous left pleural effusion, though the right pleural effusion has worsened and there may be right infiltrates versus possible nodular metastasis and possibly worsened infusion. The patient does appear to be dehydrated. She is tachycardic with a heart rate in the 130s to 140. Blood pressures are borderline being 90s diastolically and 40s and 50s diastolically though she is maintaining maps above 60. She is 97 and 99% on room air. EKG performed in the ER did show sinus tachycardia at a rate of 129. She did have a head CT performed as well which did not show any acute intracranial abnormalities. At this time the patient will be admitted to [facility] for further treatment and evaluation. REVIEW OF SYSTEMS: Unfortunately at this time review of systems was unable to be performed with the patient, though please see above HPI for reported symptoms per her family. PAST MEDICAL HISTORY: 1. Hypertension. 2. Hypothyroidism. 3. Pancreatic adenocarcinoma with lung metastases. 4. Tonsillectomy. 5. Tubal ligation. 6. A total of 2 endoscopic retrograde cholangiopancreatography (ERCP). The initial was in August with 1 stent placement. She did have a secondary ERCP that was performed at [facility] by Dr. Mcfadden for which she had 2 stents placed. 7. Right Port-A-Cath placement. SOCIAL HISTORY: The patient has no known alcohol, tobacco or illicit drug use. She is . Her was present at bedside. Two of her daughters, a granddaughter and [id number] were present at bedside as well during my examination. FAMILY HISTORY: Positive for her mother having a history of breast cancer, congestive heart failure, hypertension and thyroid disease. Her father had a history of prostate cancer and diabetes mellitus. She had a sister who had a history of breast cancer and hypertension and thyroid disease. ALLERGIES: Patient has no known allergies. HOME MEDICATIONS: 1. Dronabinol 5 mg p.o. daily. 2. Furosemide p.o. daily, though this dose does need to be verified. They have both 20 mg and 40 mg dose listed on her home medication list to be given p.o. daily. This needs to be verified whether it is 20/40 or a total of 60 daily. 1. [place] 5 mg 1 p.o. q.6 hours p.r.n. for pain. 2. Synthroid 75 mcg p.o. daily. 3. Reglan 10 mg p.o. q.6 hours p.r.n. 4. Zofran 4 mg p.o. q.6 hours p.r.n. 5. Potassium chloride 20 mEq p.o. daily. DIAGNOSTIC DATA/LABORATORY RESULTS: Laboratory results: White blood cell count is 6830, hemoglobin 11.1, hematocrit 31.3, platelet count is 162,000. PT 21.3, INR 1.71, PTT is 63.7. Sodium 131, potassium 2.9, chloride 88, serum bicarb is 32, BUN 15, creatinine 0.9. GFR greater than 60. Glucose is 73, calcium 7.4, magnesium 1.3, total bilirubin is 2.03, AST 68, ALT 28, alkaline phosphatase 231. Urinalysis was obtained via catheter and was positive for protein. It was negative for glucose, ketones, blood, nitrites, leukocytes, or bacteria. EKG showed sinus tachycardia at a rate of 129 with a QTc of 404. A CT of the head without contrast showed no acute intracranial abnormality. This is per Radiology. Chest x-ray did show right infiltrates versus possible nodular metastasis and/or possible effusion. PHYSICAL EXAMINATION: VITAL SIGNS: Temperature 97.6 degrees, heart rate 129, respirations 14, blood pressure is 94/56 with a MAP of 67, oxygen saturation is 97% room air. GENERAL: Ms. Rich is a 58-year-old ill-appearing female. She was resting in the ER stretcher, though at this time she is still very drowsy. The patient does respond to verbal stimulation and will turn her head and look at you when you tell her to though, other than this, I could not really get any other response or get her to follow any other instructions. HEENT: Head is atraumatic, normocephalic. Pupils are equal, round, reactive to light, 3 mm bilaterally and brisk. Sub-conjunctivae were pale. Oral mucosa is slightly dry. Oropharynx is clear from what I could assess, though the patient would not open her mouth all the way. CARDIOVASCULAR: Patient has S1-S2 present. No murmurs, gallops, rubs appreciated with a tachycardic rate that is regular. PULMONARY: Patient has symmetrical chest expansion bilaterally. Lung sounds were clear in all lung solis except for right lung base, where she has fine crackles noted. ABDOMEN: Slightly firm, is distended. The patient did have some localization and facial grimacing upon palpation. Bowel sounds were present in all 4 quadrants and were normoactive. EXTREMITIES: No cyanosis noted, though the patient does have edema noted in bilateral lower extremities from approximately knee down. She has 2 to 3+ pitting edema. Radial pulses were 2+ bilaterally, though were weak. Pedal pulses were difficult to palpate, though were easily obtainable with venous Doppler, both bilateral dorsalis pedis and posterior tibialis. Capillary refill was less than 3. INTEGUMENTARY: The patient's skin color is slightly pale, is warm and dry. NEUROLOGICAL: The patient is, as previously mentioned, drowsy though she is responsive to verbal stimuli by calling her name. She will open her eyes. She will turn and look toward you when asked, though other than this, I was not able to get her to really follow commands. She would not answer any questions really either. She did say yes to 1 question 1 time but other than this I was not able to get her to verbally respond either though she is able to move all extremities. Unfortunately, at this time due to the patient's current mentation and condition her neurologic exam is limited. ASSESSMENT AND PLAN: 1. Encephalopathy. This could be multifactorial. The patient has had pain medication. This could be contributing to this. She also has had poor oral intake and was mildly hypoglycemic as well. There is a possibility that she may have worsening metastasis. Her initial CT in the ER was negative for any acute intracranial abnormality. We will order an MRI of the brain with and without contrast in the morning. We have given her D50 to correct her sugar. We will closely monitor this with q.4 hours fingerstick blood sugars. She will be placed on neuro checks, frequent vital signs and continuous pulse oximetry. She has been placed in CIC for close monitoring. 2. Possible right pneumonia versus possible nodular metastasis and/or pleural effusion. The patient has had nausea, vomiting and her reports that after she vomited she has been coughing. There is a concern for possible aspiration pneumonia. We have placed her with antibiotic coverage of Zosyn. Blood cultures have been obtained. We will obtain a sputum culture as well. We will continue with aggressive pulmonary toilet and scheduled DuoNeb treatments as well as aspiration precautions. 3. Pancreatic cancer with lung metastases. We have placed a consult with Dr. Min, her oncologist. We will await his evaluation and further recommendations for management. 4. Nausea, vomiting with coffee-grounds emesis as well as diarrhea. We have obtained a Gastroccult that was positive. Her did state that she has been complaining a little more of her stomach bothering her and has been asking for Tums a lot. We will place her with IV Protonix 40 mg IV q.12 hours. We will repeat hemoglobin and hematocrit later on this morning. We have placed a consult with Gastroenterology for further evaluation for possible gastrointestinal bleeding. For her diarrhea, we have placed stool studies which included a Clostridium difficile toxin though the patient's family denied her being on antibiotics recently. 5. Worsening of abdominal pain, decreased appetite and poor oral intake. The patient's states that for 3 days now she has been complaining a little more of her stomach bothering her, that she has had decreased oral intake. The patient may need to be evaluated for possible IV nutrition if this does not improve. 6. Fluid volume depletion. This is likely secondary to above #3 and #4. We will provide IV hydration and we will continue to follow her fluid volume status closely with strict intake and output. 7. Electrolyte abnormalities which include hypokalemia and hypomagnesemia. We have ordered for these to be replaced intravenously. We will recheck a CMP with magnesium later on this morning for follow-up evaluation. 8. Hypothyroidism. We have ordered for the patient to receive her levothyroxine, though if the patient is not awake enough to be able to swallow this, this may have to be given intravenously. 9. Deep vein thrombosis prophylaxis. She will be provided with sequential compression devices. The patient has been placed on CIC with telemetry. She will have vital signs per CIC protocol. We will do continuous cardiac telemetry and pulse oximetry. Further orders and recommendations pending hospital course, diagnostic studies, and physician evaluation. TIME SPENT: Critical care time with this patient was 60 minutes. Dictated by HERNANDO Francis for Pushpa Sanchez MD cc: Pushpa Sanchez MD
[2019-02-01] MEDS ORDERED: POTASSIUM CHLORIDE 60 MEQ in NS 500 ML IV ONE (07:31)
[2019-02-01] MEDS ORDERED: NS 1,000 ML IV SCH ×2 (07:45→10:30)
--- NOTE | 2019-02-01 09:02 | EKG Report ---
Test Performed on : 01/31/2019 6:33:08 PM Test Reason : ED. No order in [place] Blood Pressure : / mmHG Vent. Rate : 129 BPM Atrial Rate : 129 BPM P-R Int : 136 ms QRS Dur : 058 ms QT Int : 276 ms P-R-T Axes : 065 065 260 degrees QTc Int : 404 ms Sinus tachycardia. Low voltage QRS Septal infarct (cited on or before 31-JAN-2019) Abnormal ECG When compared with ECG of 31-JAN-2019 18:32, (Unconfirmed) fusion complexes are no longer present premature ventricular complexes. are no longer present premature supraventricular complexes. are no longer present Unconfirmed Result
[2019-02-01] MEDS ORDERED: NS 1,000 ML IV ONE (09:03)
[2019-02-01 09:24] LABS: URINE SOURCE CATH
[2019-02-01] MEDS ORDERED: NS 1,000 ML ONE (09:28)
[2019-02-01 09:30] LABS: BILIRUBIN URINE SMALL (NEGATIVE); BLOOD URINE SMALL (NEGATIVE); COLOR YELLOW; GLUCOSE URINE NEGATIVE (NEGATIVE); KETONE URINE NEGATIVE (NEGATIVE); LEUKOCYTES URINE NEGATIVE (NEGATIVE); NITRITE URINE NEGATIVE (NEGATIVE); PH URINE 5.5; PROTEIN URINE 50 mg/dL (NEGATIVE); SP GRAVITY URINE 1.023; TURBIDITY URINE HAZY (CLEAR); UROBILINOGEN URINE 2 mg/dL (NORMAL)
[2019-02-01 09:39] LABS: UR EPITHELIAL CELLS <10 /HPF (<10); URINE BACTERIA NEGATIVE /HPF; URINE RBC <10 /HPF (<10); URINE WBC <10 /HPF (<10)
--- NOTE | 2019-02-01 10:39 | PROGRESS NOTE ---
DATE: 02/01/2019 INTERVAL HISTORY: Ms. Rich was admitted for suspected sepsis, hypotension, profound electrolyte abnormalities, and acute encephalopathy. I was informed by the nursing team that her blood pressure was low. I immediately evaluated the patient. The patient appears very lethargic. Intravenous fluid boluses have been ordered for her. SUBJECTIVE: She is lethargic, occasionally following commands intermittently. Appears very pale. VITALS: Temperature 97.4 degrees, pulse of 120, respiratory rate 14, blood pressure documented 78/39, saturating 94% on 2 L nasal cannula. PHYSICAL EXAMINATION: Oral cavity is dry. Air entry bilaterally equal. She has inspiratory crackles, especially on the right infrascapular region and also on left infrascapular region. No wheeze or rhonchi. S1, S2 normal. She has a significant crescendo-decrescendo murmur affecting the entire precordium, likely from aortic stenosis. No gallop. Abdomen: Distended. Tympanic to percussion. Mildly tender, generalized. Bilateral lower extremity edema. She is moving both upper and lower extremities spontaneously. She appears confused. LABS: Suggestive of anemia, normal platelet count, hyponatremia, hypochloremia, hypokalemia. Hypoglycemia has resolved. Elevated bilirubin, AST, and alkaline phosphatase. MICROBIOLOGY: Blood cultures are in lab. Gastric occult blood is positive. The lactate is not back yet. ASSESSMENT AND PLAN: 1. Acute encephalopathy, likely metabolic from profound electrolyte derangements with suspected sepsis. MRI of brain has been ordered. I will hold it until patient is hemodynamically stable. 2. Sepsis with differential being bilateral lower lobe pneumonia with or without acute cholangitis. Follow up blood culture results. Give patient intravenous normal saline bolus and assess her response and give additional boluses. Continue intravenous Zosyn. I will consider intravenous vancomycin addition based on her response. She could have aspirated at the time of her vomiting episodes at home. Once she is hemodynamically stable, I will consider getting CT scan of the chest, abdomen, and pelvis to evaluate for cholangitis, intrahepatic biliary dilatation. Hematology/oncology has been consulted. Follow up lactate. Continue close monitoring of input and output through Toussaint catheter. 3. Positive gastric occult blood test with coffee-grounds emesis. Continue intravenous Protonix twice a day and since it is in shortage, I will also start her on intravenous H2 nelson. I will appreciate further gastroenterology recommendation. 4. Metastatic pancreatic cancer involving the lung with blockage of bile duct requiring endoscopic retrograde cholangiopancreatography at [facility], and stent. She continues to have elevated bilirubin and elevated alkaline phosphatase which are pretty much unchanged from previous admissions. I will involve hematology/oncology and palliative care team. Continue intravenous hydromorphone as needed for abdominal pain. 5. Bilateral pleural effusions. I will continue closely monitoring patient's respiratory status in CIC, and continue ipratropium and levalbuterol nebulization. 6. Disposition. The patient's condition is critical. She has metastatic pancreatic cancer and appears to be significantly deconditioned. I will try again to get in touch with the family. Previously, nursing team tried to reach out to the and voice message was left. I will also involve palliative care for goals of care discussion. 7. Disposition. Continue to monitor patient in CIC and depending on her blood pressure response, I might have to transfer her to intensive care unit for further level of care. Plan of care discussed with the nursing team. cc: Aryan Oquendo MD
[2019-02-01] MEDS ORDERED: ATROVENT NEB INH PRN (11:46)
[2019-02-01] MEDS ORDERED: ATROPINE 1 % OPHTH SOLN SL PRN (11:50)
[2019-02-01] MEDS: DILAUDID IV PRN ×4 (12:02→20:35)
[2019-02-01] MEDS: ATIVAN IV PRN ×3 (16:21→23:14)
--- NOTE | 2019-02-01 17:36 | HEMO/ONC CONSULTATION ---
DATE: 02/01/2019 REASON FOR CONSULTATION: We treat the patient in the clinic for metastatic pancreatic adenocarcinoma. HISTORY OF PRESENT ILLNESS: Ms. Rich is a 58-year-old female who is known to our clinic with metastatic pancreatic adenocarcinoma with lung metastasis. We have most recently been treating her with Abraxane and Gemzar since 09/07/2018. Her last treatment was on 11/16/2018. We stopped treatment due to weakness for nutrition and deconditioning. We have not been able to restart treatment due to her poor performance status. Over the last few weeks, she has had an increase in pain. She has also had an increase in edema in her legs and abdomen. She has had a decrease in appetite. She has had difficulty getting any food down. She states she has early satiety and nausea. During her last visit, we gave some Marinol in an attempt to improve her nutrition. Her family states she was only able to take a few doses of this. She states that over the last 2 days she has continued to decline. She is not responding appropriately, although she does open her eyes to voice. She is not taking her medications, has not eaten or had anything to drink. PAST MEDICAL HISTORY: Hypertension, hypothyroidism, pancreatic adenocarcinoma with lung metastasis. SOCIAL HISTORY: The patient denies smoking, drinking, or any other illicit drugs. PAST SURGICAL HISTORY: Includes 2 ERCPs with stent placement, right Port-A-Cath and tubal ligation. ALLERGIES: No known drug allergies. HOME MEDICATIONS: Marinol, potassium chloride 20 mEq, [place] 10, Lasix 40 mg, Reglan, Zofran, Phenergan, bisoprolol-hydrochlorothiazide, levothyroxine and tizanidine. REVIEW OF SYSTEMS: Unable to assess at this time as the patient cannot answer questions appropriately. Symptoms in the above HPI from her family. LABORATORY DATA: WBC 8.92, hemoglobin 10.4, hematocrit 29.6, platelet count 137,000, ANC 6.26, sodium 131, potassium 2.8, creatinine 0.9, calcium 7.1, magnesium 1.5, alkaline phosphatase 207, AST 69, ALT 31. IMAGING: Chest x-ray: There is small to moderate-sized bilateral pleural effusion with underlying infiltrate and atelectasis in the mid and lower lung, more pronounced on the right. Head CT is negative. PHYSICAL EXAMINATION: General: Patient appears to feel very pale, not responding to questions. Respiratory: Poor air entry. Lung sounds clear in her upper lungs. Fine crackles noticed at the bases. HEENT: Oral mucosa appears dry. Cardiovascular: Rub/murmur appreciated. Abdomen: Distended. Grimace elicited to palpation. Bowel sounds present. Extremities: Bilateral lower extremity 3+ pitting edema. Neurological: Patient is awake and appears to be attentive, although she is not answering questions appropriately. ASSESSMENT: 1. Acute encephalopathy. 2. Sepsis from possible bilateral lower lobe pneumonia. 3. Positive gastric occult blood test with coffee-grounds emesis. 4. Pancreatic cancer with lung metastasis. 5. Bilateral pleural effusion. PLAN: The patient and family have chosen to proceed with comfort measures only at this time. We will support the family with their wishes. Keep the patient comfortable. Consult Hospice and palliative care. Dictated by HERNANDO Sosa for Azael Min MD Patient seen and examined. As above. Patient has metastatic pancreatic cancer. She has been off therapy now for the last few months due to poor performance status. Last time when I saw her in the clinic we discussed continuing comfort measures since she was very weak and we did not anticipate that she will be getting stronger for any therapy. She is admitted now with change in mental status. Her condition continues to decline. She is unable to take any by mouth intake. I had a lengthy discussion with the family and they are agreeable with hospice. We have consulted hospice. Continue comfort measures. Azael Min M.D. cc: Azael Min MD [facility]
[2019-02-01] MEDS ORDERED: ZANTAC IV SCH (18:00)
[2019-02-01] MEDS ORDERED: ZANTAC 50 MG in NS 50 ML IV SCH (18:00)
[2019-02-02] MEDS: DILAUDID IV PRN (01:45)
[2019-02-02 07:44] VITALS: BP 42/21
--- NOTE | 2019-02-02 20:28 | DISCHARGE SUMMARY ---
ADMISSION DATE: 01/31/2019 DISCHARGE DATE: 02/02/2019 CAUSE OF : Metastatic pancreatic cancer. OTHER CONTRIBUTING FACTORS: 1. Bilateral pneumonia. 2. Sepsis. TIME OF : 8:05 a.m. HOSPITAL COURSE SUMMARY: Ms. Rich is a 58-year-old lady with history of metastatic pancreatic cancer with bilateral lung metastases who was admitted for acute encephalopathy, sepsis due to bilateral lower lobe pneumonia, upper gastrointestinal bleed and hypoxic respiratory failure due to bilateral pleural effusion. The patient was admitted inside the hospital 2 months prior to current presentation where she had obstructive jaundice. At that admission, ERCP could not be performed because her pancreatic cancer mass was obstructing duodenum, and she was transferred to [facility] where she had received bile duct stent; however, since then, the patient has had deconditioned significantly. She did not receive any chemotherapy over last 2 months, and her appetite had significantly decreased. This admission she was admitted for hypoxic respiratory failure and sepsis due to bilateral lower lobe pneumonia and was lethargic on my evaluation. Goals of care discussion was held with the family. The palliative care team and Hematology/Oncology were also consulted, and patient's family had decided to make her comfort measures only, and hospice evaluation was initiated. The patient was started on intravenous Ativan, intravenous morphine as needed and the patient on 02/02/2019 at 8:05 a.m. The patient's family members were at bedside. Less than 30 minutes were spent in discharging this patient. cc: Aryan Oquendo MD
== END 2019-02-02 08:05 | disposition expired | DRG 871 ==
LOC: ED 17:41 → SUATTDRO 02-01 01:58 → 3S 02-01 01:58 → 3N 02-01 13:31
PROVIDERS: ATTEND Internal Medicine
CPT/HCPCS: 70450; 71010; 71045; 80053; 81001; 82271; 82948; 83605; 83735; 84443; 85014; 85018; 85025; 85610; 85730; 86850; 86900; 86901; 87040; 87077; 87186; 87449; 87899; 93005; 94640; 94762; A9270; J1170; J2060; J2405; J2543; J2765; J3475; J3480; J7030; J7040; XXXXX